=== PATIENT | male | born 1955 | race Caucasian/White ===

== ENCOUNTER 2019-01-07 10:10 | Inpatient (IN) | payer MEDICAID ==
[~2019-01-07] VITALS: Ht 157.5 cm; Wt 54.6 kg
[2019-01-07] VITALS (29 sets, daily range): BP systolic 101–127; BP diastolic 58–82; PULSE 89–126; RESP 11–18; Ht 157.5 cm; Wt 54.6 kg
[~2019-01-07 10:10] MED LIST: PROPOFOL 200 MG INJ ONE
[2019-01-07] MEDS ORDERED: FAMOTIDINE 20 MG INJ IV ONE (10:30)
--- NOTE | 2019-01-07 11:42 | ERD ---
ER Documentation Chief Complaint Chief Complaint BIB RA FOR EVAL OF HEMATEMESIS. ETOH HPI 63-year-old male brought to the emergency department by paramedics for evaluation of possible GI bleed. Patient is intoxicated providing very limited history. According to the paramedics, they were called to this patient on the street where he was noted to have coffee-ground emesis. He was noted to have significant diarrhea with no darren hematochezia. Patient expressed no abdominal pain. I have reviewed the kitchen hand pre-hospital care. Pre-hospital vital signs were reviewed. Pre-hospital diagnostic tests were reviewed. Upon arrival, patient is intoxicated and unable to provide any history. ROS All systems reviewed and are negative except as per history of present illness. Medications Home Meds No Active Prescriptions or Reported Meds Allergies Allergies: Coded Allergies: No Known Allergy (Unverified , 09/29/12) PMhx/Soc Medical and Surgical Hx: pt denies Medical Hx, pt denies Surgical Hx History of Surgery: No Anesthesia Reaction: No Hx Neurological Disorder: No Hx Respiratory Disorders: No Hx Cardiac Disorders: Yes (HTN) Hx Psychiatric Problems: No Hx Miscellaneous Medical Probl: Yes (ETOH) Hx Alcohol Use: Yes (last 09/13/2014) Hx Substance Use: No Hx Tobacco Use: No Smoking Status: Never smoker FmHx Unknown at this time Physical Exam Vitals Vital Signs Date Temp Pulse Resp B/P (MAP) Pulse Ox O2 O2 Flow FiO2 Time Delivery Rate 01/07/19 97 12 110/73 100 Room Air 10:50 (85) 01/07/19 95.3 114 19 116/74 97 10:28 (88) Physical Exam GENERAL: Intoxicated male. Disheveled. Unkept. HEENT: Pupils equal, round, and reactive to light. EOMI. There is no scleral icterus. NECK: C-spine is soft and supple, there is no meningismus. There is no cervical lymphadenopathy. LUNGS: Clear to auscultation bilaterally. There are no rales, wheezes or rhonchi. HEART: Regular rate and rhythm, no murmurs, clicks, rubs or gallops. ABDOMEN: Soft, non-tender, non-distended. There are bowel sounds in all four quadrants. No rebound or guarding. EXTREMITIES: There is no peripheral cyanosis or edema. No focal swelling or erythema. NEURO: The patient moves all four extremities with 5/5 strength. Cranial nerves II - XII are intact. Slurred speech. Appears intoxicated. SKIN: There is no apparent rash or petechiae. HEME/LYMPHATIC: There is no evidence of excessive bruising or lymphedema. PSYCHIATRIC: The patient does not appear anxious or depressed. Result Diagram: 01/07/19 1043 01/07/19 1044 Results 24 hrs Laboratory Tests Test 01/07/19 10:43 01/07/19 10:44 01/07/19 11:14 White Blood Count 7.5 10^3/ul Red Blood Count 3.16 10^6/ul Hemoglobin 9.9 g/dl Hematocrit 29.1 % Mean Corpuscular Volume 92.1 fl Mean Corpuscular Hemoglobin 31.3 pg Mean Corpuscular 34.0 g/dl Hemoglobin Concent Red Cell Distribution Width 17.5 % Platelet Count 213 10^3/UL Mean Platelet Volume 9.5 fl Immature Granulocytes % 0.400 % Neutrophils % 83.6 % Lymphocytes % 6.8 % Monocytes % 8.8 % Eosinophils % 0.1 % Basophils % 0.3 % Nucleated Red Blood Cells % 0.0 /100WBC Immature Granulocytes # 0.030 10^3/ul Neutrophils # 6.3 10^3/ul Lymphocytes # 0.5 10^3/ul Monocytes # 0.7 10^3/ul Eosinophils # 0.0 10^3/ul Basophils # 0.0 10^3/ul Nucleated Red Blood Cells # 0.0 10^3/ul Prothrombin Time 15.9 Sec Prothrombin Time Ratio 1.2 INR International 1.26 Normalized Ratio Activated Partial Thromboplast 33.6 Sec Time Sodium Level 135 mmol/L Potassium Level 3.7 mmol/L Chloride Level 89 mmol/L Carbon Dioxide Level 22 mmol/L Anion Gap 24 Blood Urea Nitrogen 20 mg/dl Creatinine 0.67 mg/dl Est Glomerular Filtrat > 60 mL/min Rate mL/min Glucose Level 110 mg/dl Calcium Level 8.8 mg/dl Total Bilirubin 0.3 mg/dl Direct Bilirubin 0.00 mg/dl Indirect Bilirubin 0.3 mg/dl Aspartate Amino 106 IU/L Transf (AST/SGOT) Alanine 48 IU/L Aminotransferase (ALT/SGPT) Alkaline Phosphatase 85 IU/L Total Protein 8.1 g/dl Albumin 4.5 g/dl Globulin 3.60 g/dl Albumin/Globulin Ratio 1.25 Lipase 228 U/L Ethyl Alcohol Level 252.0 mg/dl Urine Color YELLOW Urine Clarity CLEAR Urine pH 6.0 Urine Specific [place] 1.021 Urine Ketones 2+ mg/dL Urine Nitrite NEGATIVE mg/dL Urine Bilirubin NEGATIVE mg/dL Urine Urobilinogen 1+ mg/dL Urine Leukocyte Esterase NEGATIVE Pete/ul Urine Microscopic RBC 4 /HPF Urine Microscopic WBC 1 /HPF Urine Bacteria FEW /HPF Urine Hemoglobin 2+ mg/dL Urine Glucose NEGATIVE mg/dL Urine Total Protein 2+ mg/dl Current Medications Medications Dose Sig/Marina Start Time Status Last (Trade) Ordered Route PRN Stop Time Admin Dose Reason Admin Famotidine 40 mg ONCE ONCE 01/07/19 DC 01/07/19 (Pepcid Iv) IV 10:30 01/07/19 10:47 10:31 Sodium 500 ml @ Q1H ONCE 01/07/19 Chloride 500 mls/hr IV 12:00 01/07/19 12:59 Procedures/MDM Patient was taken to a room, seen and evaluated. Comfort measures were initiated. Diagnostic tests were ordered and reviewed. 3 LEAD RHYTHM STRIP: Normal sinus rhythm without ectopy RADIOLOGY: Reviewed with the radiologist CONSULTATION: Hospitalist was notified for admission REEVALUATION: 1140: Diagnostic tests were appreciated. Patient remained he dynamically stable. No active GI bleeding in the emergency department was noted. MEDICAL DECISION MAKIN-year-old male presents to the emergency department intoxicated with concerns for GI bleed. Given his significant alcohol use he is obviously at high risk of this being a significant EtOH gastritis. His hemoglobin is low, but not requiring of emergent transfusion. 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 Departure Diagnosis: Primary Impression: Alcoholic intoxication Additional Impression: GI bleed Condition: Annemarie SHEPHERDSAMMI Jan 07, 2019 11:42
[2019-01-07] MEDS ORDERED: SOD CHLORIDE 0.9% 500 ML IV ONE (12:00)
--- NOTE | 2019-01-07 12:00 | NUR ---
ER Admission: Patient admitted from ER, brought to unit by miranda, arrived @ 1200. Patient's vital signs stable, no signs of acute distress, no c/o pain. Patient admitted for GI bleed, consult with Dr. Bee pending. Report of homeless patient picked up for coffee ground emesis. Patient skin check completed with second RN. Patient's belongings at bedside. Will carry out orders. Patient instructed to call for assistance, will round on hourly, will continue to monitor patient status.
--- NOTE | 2019-01-07 12:07 | HP ---
Date/Time of Note Date/Time of Note DATE: 01/07/19 TIME: 12:07 Assessment/Plan VTE Prophylaxis SCD applied (from Ns): Yes Pharmacological prophylaxis: NA/contraindicated Pharm contraindication: bleeding Assessment/Plan Hospital Course SUBJECTIVE: Lying in bed comfortably. No acute discomfort. OBJECTIVE: Vital signs-see below PHYSICAL EXAM: Constitutional: Disheveled male, lying in bed comfortably. Psych: nl mood/affect, no complaints Head: atraumatic, normocephalic Eyes: nl conjunctiva, nl sclera ENMT: mucosa pink and moist, nl external ears & nose Neck: non-tender, supple Respiratory: clear to auscultation, normal air movement Cardiovascular: nl pulses, regular rate and rhythm Gastrointestinal: non-tender, soft, bowel sounds active in all 4 quadrants. Musculoskeletal/extremities: nl extremities to inspection, motor strength equal bilaterally, no focal deficit. Normal pulses,no cyanosis, no edema. Neurological: Altered/drowsy. nl strength Skin: nl turgor ASSESSMENT/PLAN: 63-year-old homeless male who is also a poor historian with alcoholism, brought in by paramedics after found on the street intoxicated, fernando ng coffee-ground emesis. 1. Coffee-ground emesis/UGIB. Rule out variceal bleeding -GI consult for EGD -N.p.o. -Start Protonix drip -Monitor H&H closely-Q 8. Currently stable, no indication for transfusion. -CT abdomen and pelvis 2. EtOH abuse/intoxication -Banana bag, IV fluids -Ativan for withdrawal as patient unable to tolerate any p.o. Librium secondary to his mental status -Cessation advised. 3. Encephalopathy, likely toxic metabolic. -CT brain to rule out stroke -Supportive care 4. 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 Approximately 60 m spent on this history and physical. Patient was seen in collaboration with . Result Diagram: 01/07/19 1043 01/07/19 1044 Results 24hrs Laboratory Tests Test 01/07/19 10:43 01/07/19 10:44 01/07/19 11:14 White Blood Count 7.5 # Red Blood Count 3.16 L Hemoglobin 9.9 L Hematocrit 29.1 L Mean Corpuscular Volume 92.1 Mean Corpuscular Hemoglobin 31.3 Mean Corpuscular Hemoglobin Concent 34.0 Red Cell Distribution Width 17.5 H Platelet Count 213 Mean Platelet Volume 9.5 # Immature Granulocytes % 0.400 Neutrophils % 83.6 H Lymphocytes % 6.8 L Monocytes % 8.8 Eosinophils % 0.1 Basophils % 0.3 Nucleated Red Blood Cells % 0.0 Immature Granulocytes # 0.030 Neutrophils # 6.3 Lymphocytes # 0.5 L Monocytes # 0.7 Eosinophils # 0.0 Basophils # 0.0 Nucleated Red Blood Cells # 0.0 Prothrombin Time 15.9 H Prothrombin Time Ratio 1.2 INR International Normalized Ratio 1.26 Activated Partial Thromboplast Time 33.6 Sodium Level 135 Potassium Level 3.7 Chloride Level 89 L Carbon Dioxide Level 22 Anion Gap 24 H Blood Urea Nitrogen 20 Creatinine 0.67 Est Glomerular Filtrat Rate mL/min > 60 Glucose Level 110 Calcium Level 8.8 Total Bilirubin 0.3 Direct Bilirubin 0.00 Indirect Bilirubin 0.3 Aspartate Amino Transf (AST/SGOT) 106 H Alanine Aminotransferase (ALT/SGPT) 48 Alkaline Phosphatase 85 Total Protein 8.1 Albumin 4.5 Globulin 3.60 H Albumin/Globulin Ratio 1.25 Lipase 228 Ethyl Alcohol Level 252.0 H Urine Color YELLOW Urine Clarity CLEAR Urine pH 6.0 Urine Specific [place] 1.021 Urine Ketones 2+ H Urine Nitrite NEGATIVE Urine Bilirubin NEGATIVE Urine Urobilinogen 1+ H Urine Leukocyte Esterase NEGATIVE Urine Microscopic RBC 4 Urine Microscopic WBC 1 Urine Bacteria FEW A Urine Hemoglobin 2+ H Urine Glucose NEGATIVE Urine Total Protein 2+ H HPI/ROS Admit Date/Time Admit Date/Time Hx of Present Illness 63-year-old disheveled, homeless male with alcohol abuse, brought in by paramedics after found on street intoxicated, altered, having coffee-ground emesis. Apparently, patient is a very poor historian, unable to provide me any information, as such history is very limited. Patient denies to any acute discomfort like chest pain, palpitation, shortness of breath, abdominal pain, trauma, dizziness, or other acute constitutional symptoms. In the emergency room, initial labs showed hemoglobin 9.9, hematocrit 29.1, AST 106. Atrial alcohol detected 252 and blood. Coag studies unremarkable. Urine analysis negative for any UTI. Chest x-ray with subsegmental atelectasis, no evidence of pneumonia or other acute cardiopulmonary disease. There were old rib fractures visible in the x-ray. In the emergency room, patient was given normal saline 500 mL and Pepcid 40 mg and was admitted for GI bleed workup. ROS A 12 point review of system was assessed and is negative other than what is mentioned in HPI. PMH/Family/Social Past Medical History See HPI Medications Current Medications Sodium Chloride 500 ml @ 500 mls/hr Q1H ONCE IV Last administered on 01/07/19at 11:53; Admin Dose 500 MLS/HR; Start 01/07/19 at 12:00; Stop 01/07/19 at 12:59 Coded Allergies: No Known Allergy (Unverified , 09/29/12) Past Surgical History Noncontributory Social History Alcohol abuse. Smoking Status: Never smoker Exam/Review of Systems Vital Signs Vitals Vital Signs Date Temp Pulse Resp B/P (MAP) Pulse Ox O2 O2 Flow FiO2 Time Delivery Rate 01/07/19 98.3 111 12 110/65 100 Room Air 11:56 (80) CHINO AGUILAR NP Jan 07, 2019 12:07
[2019-01-07] MEDS ORDERED: ACETAMINOPHEN 650 MG SUPP PR PRN (12:30)
[2019-01-07] MEDS ORDERED: ONDANSETRON 4 MG INJ IV PRN (12:30)
[2019-01-07] MEDS ORDERED: PANTOPRAZOLE IV 80 MG in SOD CHLORIDE 0.9% 100 ML IVPB ONE (12:30)
[2019-01-07] MEDS ORDERED: NACL 0.9% 3 ML SYG IV SCH (12:30)
[2019-01-07] MEDS ORDERED: LORAZEPAM 2 MG INJ IV PRN (12:30)
--- NOTE | 2019-01-07 13:30 | NUR ---
Skin Assessment: Skin assessment completed. Patient noted to have multiple abrasions throughout body surface. Patient reports the abrasion occurred from falls; patient in homeless & lives on the streets. Pictures taken & placed in chart. Addendum: 01/07/19 at 1717 by MANSOOR CURRIE RN Endorsed to receiving Kat. SKYLER
[2019-01-07] MEDS: SOD CHLORIDE 0.9% 1,000 ML IV SCH ×2 (13:35→20:01)
--- NOTE | 2019-01-07 13:36 | QN ---
Documentation Comment RN called reported bouts of bloody vomiting. Recommended transferring patient to telemetry. Obtain stat H&H and will give standing transfusion orders. Continue Protonix drip. Add octreotide. Patient needs emergent EGD evaluation and I contacted inspector publications to arrange EGD as soon as possible. GI to follow. Case discussed with CHINO Bobo NP Jan 07, 2019 13:35
--- NOTE | 2019-01-07 14:21 | NUR ---
NURSES NOTES: PT TO BE TRANSFERRED FROM 2NE ROOM 2283 TO 6W ROOM 621. ENDORSED BY SKYLER MAX. KULDEEP, CHARGE NURSE FROM TELEMETRY TO HOSPICE OFFICE COORDINATOR PATIENT. AWAITING FOR PATIENT AT THIS TIME
--- NOTE | 2019-01-07 14:30 | NUR ---
Transfer: Patient transferred to telemetry 6W room 621, report given to SKYLER Acevedo. Patient vomiting bright red emesis x2, once was on bed, second time in emesis bag 200ml. Patient heart rate elevated 125bpm. Patient to be started on med given on tele unit. TRAVIS Lopez made aware of patient status. Orders to transfer to telemetry received and carried out. Patient transported by bed with SKYLER LIGHT & transporter.
--- NOTE | 2019-01-07 14:38 | CONS ---
Assessment/Plan Assessment/Plan Assessment/Plan (Daily) Consultation Date/Type/Reason Admit Date/Time Date of Consultation: Jan 07, 2019 Date/Time of Note DATE: 01/07/19 TIME: 14:35 Past Medical History Home Meds No Active Prescriptions or Reported Meds Medications Current Medications Sodium Chloride 1,000 ml @ 125 mls/hr Q8H IV Last administered on 01/07/19at 13:35; Admin Dose 125 MLS/HR; Start 01/07/19 at 12:01 IV Flush (NS 3 ml) 3 ml PER PROTOCOL IV ; Start 01/07/19 at 12:30 Ondansetron HCl (Zofran Inj) 4 mg Q6H PRN IV NAUSEA/VOMITING; Start 01/07/19 at 12:30 Acetaminophen (Tylenol Supp) 650 mg Q6H PRN MD .PAIN 1-3 OR TEMP; Start 01/07/19 at 12:30 Pantoprazole 80 mg/Sodium Chloride 100 ml @ 10 mls/hr Q10H IV ; Start 01/07/19 at 13:00 Multivitamins 10 ml/Thiamine HCl 100 mg/Folic Acid 1 mg/Sodium Chloride 1,011.2 ml @ 125 mls/ hr DAILY@09 IVPB ; Start 01/07/19 at 14:00 Lorazepam (Ativan) 1 mg Q2H PRN IV SEIZURES/AGITATION; Start 01/07/19 at 12:30 Octreotide Acetate 50 mcg/ Sodium Chloride 51 ml @ 204 mls/hr ONCE ONCE IVPB ; Start 01/07/19 at 14:00; Stop 01/07/19 at 14:14; Status UNV Allergies: Coded Allergies: No Known Allergy (Unverified , 01/07/19) Social History Smoking Status: Current some day smoker Exam/Review of Systems Exam Vitals . Vital Signs Date Temp Pulse Resp B/P (MAP) Pulse Ox O2 O2 Flow FiO2 Time Delivery Rate 01/07/19 121 107/61 95 14:01 (76) 01/07/19 98.4 18 12:30 01/07/19 Room Air 11:56 Results Result Diagram: 01/07/19 1043 01/07/19 1044 Results 24hrs Laboratory Tests Test 01/07/19 10:43 01/07/19 10:44 01/07/19 11:14 White Blood Count 7.5 # Red Blood Count 3.16 L Hemoglobin 9.9 L Hematocrit 29.1 L Mean Corpuscular Volume 92.1 Mean Corpuscular Hemoglobin 31.3 Mean Corpuscular Hemoglobin Concent 34.0 Red Cell Distribution Width 17.5 H Platelet Count 213 Mean Platelet Volume 9.5 # Immature Granulocytes % 0.400 Neutrophils % 83.6 H Lymphocytes % 6.8 L Monocytes % 8.8 Eosinophils % 0.1 Basophils % 0.3 Nucleated Red Blood Cells % 0.0 Immature Granulocytes # 0.030 Neutrophils # 6.3 Lymphocytes # 0.5 L Monocytes # 0.7 Eosinophils # 0.0 Basophils # 0.0 Nucleated Red Blood Cells # 0.0 Prothrombin Time 15.9 H Prothrombin Time Ratio 1.2 INR International Normalized Ratio 1.26 Activated Partial Thromboplast Time 33.6 Sodium Level 135 Potassium Level 3.7 Chloride Level 89 L Carbon Dioxide Level 22 Anion Gap 24 H Blood Urea Nitrogen 20 Creatinine 0.67 Est Glomerular Filtrat Rate mL/min > 60 Glucose Level 110 Calcium Level 8.8 Total Bilirubin 0.3 Direct Bilirubin 0.00 Indirect Bilirubin 0.3 Aspartate Amino Transf (AST/SGOT) 106 H Alanine Aminotransferase (ALT/SGPT) 48 Alkaline Phosphatase 85 Total Protein 8.1 Albumin 4.5 Globulin 3.60 H Albumin/Globulin Ratio 1.25 Lipase 228 Ethyl Alcohol Level 252.0 H Urine Color YELLOW Urine Clarity CLEAR Urine pH 6.0 Urine Specific [place] 1.021 Urine Ketones 2+ H Urine Nitrite NEGATIVE Urine Bilirubin NEGATIVE Urine Urobilinogen 1+ H Urine Leukocyte Esterase NEGATIVE Urine Microscopic RBC 4 Urine Microscopic WBC 1 Urine Bacteria FEW A Urine Hemoglobin 2+ H Urine Glucose NEGATIVE Urine Total Protein 2+ H Medications Medication Current Medications Sodium Chloride 1,000 ml @ 125 mls/hr Q8H IV Last administered on 01/07/19at 13:35; Admin Dose 125 MLS/HR; Start 01/07/19 at 12:01 IV Flush (NS 3 ml) 3 ml PER PROTOCOL IV ; Start 01/07/19 at 12:30 Ondansetron HCl (Zofran Inj) 4 mg Q6H PRN IV NAUSEA/VOMITING; Start 01/07/19 at 12:30 Acetaminophen (Tylenol Supp) 650 mg Q6H PRN MD .PAIN 1-3 OR TEMP; Start 01/07/19 at 12:30 Pantoprazole 80 mg/Sodium Chloride 100 ml @ 10 mls/hr Q10H IV ; Start 01/07/19 at 13:00 Multivitamins 10 ml/Thiamine HCl 100 mg/Folic Acid 1 mg/Sodium Chloride 1,011.2 ml @ 125 mls/ hr DAILY@09 IVPB ; Start 01/07/19 at 14:00 Lorazepam (Ativan) 1 mg Q2H PRN IV SEIZURES/AGITATION; Start 01/07/19 at 12:30 Octreotide Acetate 50 mcg/ Sodium Chloride 51 ml @ 204 mls/hr ONCE ONCE IVPB ; Start 01/07/19 at 14:00; Stop 01/07/19 at 14:14; Status RENETTA VELASQUEZ Jan 07, 2019 14:38
[2019-01-07] MEDS: PANTOPRAZOLE IV 80 MG in SOD CHLORIDE 0.9% 100 ML IV SCH ×2 (14:39→23:00)
[2019-01-07] MEDS: MULTIVITAMINS 10 ML, THIAMINE 100 MG, FOLIC ACID 1 MG in SOD CHLORIDE 0.9% 1,000 ML IVPB SCH (14:39)
--- NOTE | 2019-01-07 15:21 | NUR ---
NURSES NOTES: PT WITH ORDERS FOR EGD. CONSENT OBTAINED BY PT AND PLACED IN CHART. CALLED GI LAB AND ENDORSED PT TO VREO PUNCH CARD OPERATOR NURSE AT THIS TIME. PT CLEAN AND DRY. AWAITING FOR TRANSPORTER. WILL CONTINUE TO MONITOR AND ASSESS PT THROUGHOUT THE SHIFT
--- NOTE | 2019-01-07 15:36 | NUR ---
NURSES NOTES: PT PICKED UP BY DYLON AND ACCOMPANIED BY LANCE MANCILLA FOR SCHEDULED EGD BY AWAITING FOR PT TO ARRIVE BACK TO UNIT
--- NOTE | 2019-01-07 15:41 | PREAC ---
Date/Time of Note Date/Time of Note DATE: 01/07/19 TIME: 15:40 Anesthesia Eval and Record Evaluation Time Pre-Procedure Interview DATE: 01/07/19 TIME: 15:40 Age 63 Sex male NPO: 8 hrs Preoperative diagnosis gi bleeding Planned procedure EGD Past Medical History Past Medical History: Includes Neuro: Other (encephalopathy) Hepatic: Alcohol abuse Surgery & Anesthesia Issues No known issue Meds Anticoagulation: No Beta Ty within 24 hr: No Reason Beta Ty not given: Pt. not on B-Ty No Active Prescriptions or Reported Meds Current Medications Sodium Chloride 1,000 ml @ 125 mls/hr Q8H IV Last administered on 01/07/19at 13:35; Admin Dose 125 MLS/HR; Start 01/07/19 at 12:01 IV Flush (NS 3 ml) 3 ml PER PROTOCOL IV ; Start 01/07/19 at 12:30 Ondansetron HCl (Zofran Inj) 4 mg Q6H PRN IV NAUSEA/VOMITING; Start 01/07/19 at 12:30 Acetaminophen (Tylenol Supp) 650 mg Q6H PRN ME .PAIN 1-3 OR TEMP; Start 01/07/19 at 12:30 Pantoprazole 80 mg/Sodium Chloride 100 ml @ 10 mls/hr Q10H IV Last administered on 01/07/19at 14:39; Admin Dose 10 MLS/HR; Start 01/07/19 at 13:00 Multivitamins 10 ml/Thiamine HCl 100 mg/Folic Acid 1 mg/Sodium Chloride 1,011.2 ml @ 125 mls/ hr DAILY@09 IVPB Last administered on 01/07/19at 14:39; Admin Dose 125 MLS/HR; Start 01/07/19 at 14:00 Lorazepam (Ativan) 1 mg Q2H PRN IV SEIZURES/AGITATION; Start 01/07/19 at 12:30 Octreotide Acetate 50 mcg/ Sodium Chloride 51 ml @ 204 mls/hr ONCE ONCE IVPB ; Start 01/07/19 at 16:00; Stop 01/07/19 at 16:14 Influenza Virus Vaccine Quadrival (Fluzone) 0.5 ml ONCE ONCE IM* ; Start 01/08/19 at 10:00; Stop 01/08/19 at 10:01 Meds reviewed: Yes Allergies Coded Allergies: No Known Allergy (Unverified , 01/07/19) Allergies Reviewed: Yes Labs/Studies Labs Reviewed: Reviewed by anesthesiologist Result Diagram: 01/07/19 1503 01/07/19 1044 Laboratory Tests 01/07/19 10:43 01/07/19 10:44 01/07/19 15:03 Blood Bank Test 01/07/19 10:43 Antibody Screen NEGATIVE Blood Product Summary Counts Blood Type O POSITIVE Crossmatch Red Blood Cells test: N/A Pre-procedure Exam Last vitals Vital Signs Date Temp Pulse Resp B/P (MAP) Pulse Ox O2 O2 Flow FiO2 Time Delivery Rate 01/07/19 99.0 112 16 123/65 97 15:07 (84) 01/07/19 Room Air 11:56 Airway: Adequate mouth opening Mallampati: Mallampati I Teeth: Normal Lung: Normal Heart: Normal ASA Physical Status ASA physical status: 2 Emergency: None Planned Anesthetic General/MAC: MAC Pre-operative Attestations Prior to commencing anesthesia and surgery, the patient was re-evaluated, there was verification of: *The patient's identity *The results of appropriate recent lab work and preoperative vital signs *The above evaluation not changing prior to induction *Anesthetic plan, risk benefits, alternative and complications discussed with patient/family; questions answered; patient/family understands, accepts and wishes to proceed. LUCINDA CROWE MD Jan 07, 2019 15:41
--- NOTE | 2019-01-07 15:58 | NUR ---
RECEIVED FROM GI LAB S/P EGD WITH BX. IV INFUSING IN RT. AC #20 ANGIOCATH
[2019-01-07] MEDS ORDERED: OCTREOTIDE 50 MCG in SOD CHLORIDE 0.9% 50 ML IVPB ONE (16:00)
[2019-01-07] MEDS ORDERED: SOD CHLORIDE 0.9% 100 ML ONE (16:20)
[2019-01-07] MEDS ORDERED: IOHEXOL 300MG/ML 150 ML BTL ONE (16:20)
--- NOTE | 2019-01-07 16:24 | CONS ---
Assessment/Plan Assessment/Plan Assessment/Plan (Daily) Assessment: GI bleeding/hematemesis/coffee-ground emesis. History of alcohol abuse. Probable alcoholic liver disease. Confusional state/encephalopathy Homelessness Plan: Urgent EGD. Further recommendation will depend on findings. Monitor H&H and transfuse as necessary. Consultation Date/Type/Reason Admit Date/Time Date of Consultation: Jan 07, 2019 Type of Consult Gastroenterology Reason for Consultation GI bleeding Date/Time of Note DATE: 01/07/19 TIME: 16:17 Hx of Present Illness 63-year-old male, homeless, EtOH abuser, presented to the emergency room with evidence of coffee-ground emesis which recurred while in hospital, he has been transferred to telemetry for further management. The patient provides no additional information of significant value. He does admit significant ethanol abuse. No previous history of gastrointestinal bleeding or knowledge of cirrhosis. The patient will be evaluated with urgent EGD given the persistence of coffee-ground emesis. Review of Systems: [A 12 system, review was conducted and is negative except as noted in the HPI or here.] Gastrointestinal and liver: [As noted in HPI] Past Medical History Alcohol abuse Home Meds No Active Prescriptions or Reported Meds Medications Current Medications Sodium Chloride 1,000 ml @ 125 mls/hr Q8H IV Last administered on 01/07/19at 13:35; Admin Dose 125 MLS/HR; Start 01/07/19 at 12:01 IV Flush (NS 3 ml) 3 ml PER PROTOCOL IV ; Start 01/07/19 at 12:30 Ondansetron HCl (Zofran Inj) 4 mg Q6H PRN IV NAUSEA/VOMITING; Start 01/07/19 at 12:30 Acetaminophen (Tylenol Supp) 650 mg Q6H PRN CO .PAIN 1-3 OR TEMP; Start 01/07/19 at 12:30 Pantoprazole 80 mg/Sodium Chloride 100 ml @ 10 mls/hr Q10H IV Last administered on 01/07/19at 14:39; Admin Dose 10 MLS/HR; Start 01/07/19 at 13:00 Multivitamins 10 ml/Thiamine HCl 100 mg/Folic Acid 1 mg/Sodium Chloride 1,011.2 ml @ 125 mls/ hr DAILY@09 IVPB Last administered on 01/07/19at 14:39; Admin Dose 125 MLS/HR; Start 01/07/19 at 14:00 Lorazepam (Ativan) 1 mg Q2H PRN IV SEIZURES/AGITATION; Start 01/07/19 at 12:30 Influenza Virus Vaccine Quadrival (Fluzone) 0.5 ml ONCE ONCE IM* ; Start 01/08/19 at 10:00; Stop 01/08/19 at 10:01 Allergies: Coded Allergies: No Known Allergy (Unverified , 01/07/19) Past Surgical History Past Surgical Hx: no surgical history Family History Significant Family History: no pertinent family hx Social History Alcohol Use: heavy Smoking Status: Current some day smoker Exam/Review of Systems Exam Vitals Vital Signs Date Temp Pulse Resp B/P (MAP) Pulse Ox O2 O2 Flow FiO2 Time Delivery Rate 01/07/19 98.6 112 12 116/61 97 Nasal 3.0 15:46 (79) Cannula Exam PHYSICAL EXAMINATION: GENERAL: Well developed, well nourished, somewhat confused in no acute distress SKIN: No lesions, no stigmata chronic liver disease, no evidence of bleeding diathesis LYMPHATIC: No palpable lymphadenopathy. HEAD: Normocephalic, atraumatic, no tenderness. EYES: Pupils equal reactive to light and accommodation, full extraocular movements, sclera clear, non-icteric, no discharge. EARS/NOSE AND THROAT: Ears normal, nose normal, oropharynx normal, oral membranes well hydrated without lesions. NECK: Supple, no masses, thyroid normal, JVP within normal limits, carotids normal without bruits. CHEST: Inspection within normal limits. CARDIOVASCULAR: Heart: Regular rate and rhythm, no murmurs, gallops or rubs. Peripheral pulses present within normal limits, no cyanosis, clubbing or edemas. No pulsatile abdominal mass RESPIRATORY: Lungs clear to auscultation and percussion, no wheezing, no rubs GASTROINTESTINAL AND LIVER: Abdomen: Soft, moderate epigastric tenderness, non- distended, no hernias, no masses, no organomegaly, no ascites, no guarding, no rebound tenderness, normoactive bowel sounds. Rectal: Deferred. GENITOURINARY: [Male genitalia within normal limits.] EXTREMITIES: No cyanosis, clubbing or edema. Results Result Diagram: 01/07/19 1503 01/07/19 1044 Results 24hrs Laboratory Tests Test 01/07/19 10:43 01/07/19 10:44 01/07/19 11:14 01/07/19 15:03 White Blood Count 7.5 # Red Blood Count 3.16 L Hemoglobin 9.9 L 8.2 L Hematocrit 29.1 L 24.0 L Mean Corpuscular Volume 92.1 Mean Corpuscular 31.3 Hemoglobin Mean Corpuscular 34.0 Hemoglobin Concent Red Cell Distribution 17.5 H Width Platelet Count 213 Mean Platelet Volume 9.5 # Immature Granulocytes % 0.400 Neutrophils % 83.6 H Lymphocytes % 6.8 L Monocytes % 8.8 Eosinophils % 0.1 Basophils % 0.3 Nucleated Red Blood 0.0 Cells % Immature Granulocytes # 0.030 Neutrophils # 6.3 Lymphocytes # 0.5 L Monocytes # 0.7 Eosinophils # 0.0 Basophils # 0.0 Nucleated Red Blood 0.0 Cells # Prothrombin Time 15.9 H Prothrombin Time Ratio 1.2 INR International 1.26 Normalized Ratio Activated 33.6 Partial Thromboplast Time Sodium Level 135 Potassium Level 3.7 Chloride Level 89 L Carbon Dioxide Level 22 Anion Gap 24 H Blood Urea Nitrogen 20 Creatinine 0.67 Est Glomerular Filtrat > 60 Rate mL/min Glucose Level 110 Calcium Level 8.8 Total Bilirubin 0.3 Direct Bilirubin 0.00 Indirect Bilirubin 0.3 Aspartate Amino 106 H Transf (AST/SGOT) Alanine 48 Aminotransferase (ALT/SG PT) Alkaline Phosphatase 85 Total Protein 8.1 Albumin 4.5 Globulin 3.60 H Albumin/Globulin Ratio 1.25 Lipase 228 Ethyl Alcohol Level 252.0 H Urine Color YELLOW Urine Clarity CLEAR Urine pH 6.0 Urine Specific [place] 1.021 Urine Ketones 2+ H Urine Nitrite NEGATIVE Urine Bilirubin NEGATIVE Urine Urobilinogen 1+ H Urine Leukocyte Esterase NEGATIVE Urine Microscopic RBC 4 Urine Microscopic WBC 1 Urine Bacteria FEW A Urine Hemoglobin 2+ H Urine Glucose NEGATIVE Urine Total Protein 2+ H Medications Medication Current Medications Sodium Chloride 1,000 ml @ 125 mls/hr Q8H IV Last administered on 01/07/19at 13:35; Admin Dose 125 MLS/HR; Start 01/07/19 at 12:01 IV Flush (NS 3 ml) 3 ml PER PROTOCOL IV ; Start 01/07/19 at 12:30 Ondansetron HCl (Zofran Inj) 4 mg Q6H PRN IV NAUSEA/VOMITING; Start 01/07/19 at 12:30 Acetaminophen (Tylenol Supp) 650 mg Q6H PRN CO .PAIN 1-3 OR TEMP; Start 01/07/19 at 12:30 Pantoprazole 80 mg/Sodium Chloride 100 ml @ 10 mls/hr Q10H IV Last administered on 01/07/19at 14:39; Admin Dose 10 MLS/HR; Start 01/07/19 at 13:00 Multivitamins 10 ml/Thiamine HCl 100 mg/Folic Acid 1 mg/Sodium Chloride 1,011.2 ml @ 125 mls/ hr DAILY@09 IVPB Last administered on 01/07/19at 14:39; Admin Dose 125 MLS/HR; Start 01/07/19 at 14:00 Lorazepam (Ativan) 1 mg Q2H PRN IV SEIZURES/AGITATION; Start 01/07/19 at 12:30 Influenza Virus Vaccine Quadrival (Fluzone) 0.5 ml ONCE ONCE IM* ; Start 01/08/19 at 10:00; Stop 01/08/19 at 10:01 CLARIBEL BOJORQUEZ MD Jan 07, 2019 16:24
--- NOTE | 2019-01-07 17:26 | NUR ---
NURSES NOTES: RECEIVED CALL FROM MANUEL FROM [facility] S/P EGD BY DR.SUCHOV Mckeon BIOPSY- DX: GASTRITIS. AWAITING FOR PT TO ARRIVE BACK TO UNIT.
--- NOTE | 2019-01-07 17:27 | NUR ---
REPORT GIVEN TO SKYLER MO
--- NOTE | 2019-01-07 17:41 | NUR ---
NURSES NOTES: PT BACK ON UNIT TRANSPORTED BY NURA HOLLAND FROM [facility]. A/OX3. STARTED ON CLEAR LIQUID DIET. WILL CONTINUE TO MONITOR AND ASSESS PT THROUGHOUT THE SHIFT
--- NOTE | 2019-01-07 17:43 | NUR ---
TRANSPORTED TO . ACCOMPANIED BY RN IN STABLE CONDITION. IV REMAINS PATENT. DENIES PAIN AT PRESENT.
[2019-01-07] MEDS: SUCRALFATE (100 MG/ML) 10ML CUP PO SCH ×2 (17:48→20:54)
--- NOTE | 2019-01-07 18:20 | NUR ---
NURSES NOTES: PT OFF UNIT FOR SCHEDULED CT/ABD PELVIS. AWAITING FOR PATIENT TO ARRIVE BACK TO UNIT
--- NOTE | 2019-01-07 18:59 | NUR ---
EOSS: PT SITTING UP IN BED. DENIES CHEST PAIN OR DISCOMFORT AT THIS TIME. NO S/S OR RESPIRATORY DISTRESS PT ON ROOM AIR. PT CLEAN AND DRY. BED BATH GIVEN TO PATIENT. WOUND CARE COMPLETED. S/P EGD WITH BIOPSY BY DR. BOJORQUEZ DX: GASTRITIS. PENDING RESULTS FOR CT/ABD PELVIS. BANANA BAG INFUSING AT 125 ML/HR AND PROTONIX @ 10 ML/HR INFUSING. PENDING LABS: H&H Q8H - WITH STANDING ORDERS COMMUNICATION TO NURSE: TRANSFUSE IF HGB <8.0 2 UNITS PACKED CELLS. FALL AND SAFETY PRECAUTIONS IMPLEMENTED, CALL LIGHT WITHIN REACH ABLE TO MAKE NEEDS KNOWN. BED IN LOWEST POSITION BRAKES LOCKED ROOM FREE OF CLUTTER. PERSONAL BELONGINGS PLACED CLOSE TO PATIENT. WILL ENDORSE TO ORNAMENTAL PLASTER STICKER RN ACCORDINGLY
[2019-01-08] VITALS (11 sets, daily range): BP systolic 109–135; BP diastolic 63–71; PULSE 90–111; RESP 16–18
[2019-01-08] MEDS: PANTOPRAZOLE IV 80 MG in SOD CHLORIDE 0.9% 100 ML IV SCH ×2 (02:42→09:00)
[2019-01-08] MEDS: SOD CHLORIDE 0.9% 1,000 ML IV SCH ×2 (04:01→06:34)
--- NOTE | 2019-01-08 04:20 | NUR ---
END OF SHIFT REPORT VITALS STABLE. SINUS TACHY TO SINUS RHYTHM ON MONITOR. NO SIGNS OF DISTRESS; GOOD OXYGEN SATURATION. HAD ONE EPISODE OF VOMITING,COFFEE GROUND MATERIAL ABOUT 1/2 CUP. NO COMPLAINT OF PAIN RECEIVED 2 UNITS OF PACKED RBC TRANSFUSION. PREBT H/H = 7.7/22.2 Addendum: 01/08/19 at 0624 by SANDHYA CATALAN RN POST BT H/H 10.3/29.1 TOTAL COFFEE GROUND EMESIS FOR 12 HOURS ABOUT 400 ML
--- NOTE | 2019-01-08 08:10 | PAC ---
Date/Time of Note Date/Time of Note DATE: 01/08/19 TIME: 08:10 Post-Anesthesia Notes Post-Anesthesia Note Last documented vital signs Vital Signs Date Temp Pulse Resp B/P (MAP) Pulse Ox O2 O2 Flow FiO2 Time Delivery Rate 01/08/19 98.9 97 18 135/64 96 04:09 (87) 01/07/19 Room Air 17:27 01/07/19 10.0 15:54 Activity: WNL Respiratory function: WNL Cardiovascular function: WNL Mental status: Baseline Pain reasonably controlled: Yes Hydration appropriate: Yes Nausea/Vomiting absent: No LUCINDA CROWE MD Jan 08, 2019 08:10
[2019-01-08] MEDS: SUCRALFATE (100 MG/ML) 10ML CUP PO SCH ×4 (10:00→21:39)
[2019-01-08] MEDS: MULTIVITAMINS 10 ML, THIAMINE 100 MG, FOLIC ACID 1 MG in SOD CHLORIDE 0.9% 1,000 ML IVPB SCH (10:04)
[2019-01-08] MEDS ORDERED: MAGNESIUM SULFATE 4 GM/100 ML 100 ML IVPB ONE (10:30)
--- NOTE | 2019-01-08 11:00 | PN ---
Date/Time of Note Date/Time of Note DATE: 01/08/19 TIME: 10:56 Assessment/Plan VTE Prophylaxis Risk score (from Nsg)>0 risk: 3 SCD applied (from Ns): Yes Pharmacological prophylaxis: NA/contraindicated Pharm contraindication: low risk/ambulating, bleeding, anticoag not tolerated Lines/Catheters IV Catheter Type (from Nrs): Peripheral IV Urinary Cath still in place: No Assessment/Plan Hospital Course SUBJECTIVE: Status post EGD. No further hematemesis, nausea, vomiting or abdominal pain reported. OBJECTIVE: Vital signs-see below PHYSICAL EXAM: Constitutional: Disheveled male, lying in bed comfortably. Psych: nl mood/affect, no complaints Head: atraumatic, normocephalic Eyes: nl conjunctiva, nl sclera ENMT: mucosa pink and moist, nl external ears & nose Neck: non-tender, supple Respiratory: clear to auscultation, normal air movement Cardiovascular: nl pulses, regular rate and rhythm Gastrointestinal: non-tender, soft, bowel sounds active in all 4 quadrants. Musculoskeletal/extremities: nl extremities to inspection, motor strength equal bilaterally, no focal deficit. Normal pulses,no cyanosis, no edema. Neurological: Alert oriented x3. nl strength Skin: nl turgor ASSESSMENT/PLAN: 63-year-old homeless male who is also a poor historian with alcoholism, brought in by paramedics after found on the street intoxicated, having coffee-ground emesis. 1. Hematemesis/Upper GIB. Rule out variceal bleeding -Status post EGD, results pending. -Symptoms resolved. H&H stabilized=>Advance diet to full liquid. Change Protonix drip to 40 mg IV twice daily. 2. Acute blood loss anemia requiring multiple transfusion. -Now stable. -Monitor and will transfuse as needed. -We will also give iron supplementation. 3. EtOH abuse/intoxication -Continue banana bag. Will start Librium tapering dose. -Cessation advised. -group home worker to assist with rehabilitation program if patient is interested. 4. Encephalopathy, likely toxic metabolic 2/2 alcoholism -Resolved. -Supportive care 5. Homelessness -group home worker assistance. 6. Possible depressive disorders -group home worker recommended psych evaluation as such I have placed an order for inpatient psych eval. DVT prophylaxis: SCDs PUD prophylaxis: Protonix Disposition: Continue current management. Advance diet. If no further symptoms, stable heart rate, he can be downgraded to medical surgical floor. Patient was seen in collaboration with . Result Diagram: 01/08/19 1040 01/08/19 0532 Results 24hrs Laboratory Tests Test 01/07/19 11:14 01/07/19 15:03 01/07/19 20:27 01/08/19 05:32 Urine Color YELLOW Urine Clarity CLEAR Urine pH 6.0 Urine Specific 1.021 [place] Urine Ketones 2+ H Urine Nitrite NEGATIVE Urine Bilirubin NEGATIVE Urine Urobilinogen 1+ H Urine Leukocyte NEGATIVE Esterase Urine Microscopic 4 RBC Urine Microscopic 1 WBC Urine Bacteria FEW A Urine Hemoglobin 2+ H Urine Glucose NEGATIVE Urine Total Protein 2+ H Hemoglobin 8.2 L 7.7 L 10.3 #L Hematocrit 24.0 L 22.2 L 29.1 #L White Blood Count 7.3 Red Blood Count 3.31 L Mean Corpuscular 87.9 Volume Mean Corpuscular 31.1 Hemoglobin Mean Corpuscular 35.4 Hemoglobin Concent Red Cell 16.9 H Distribution Width Platelet Count 183 Mean Platelet 9.9 Volume Immature 0.500 H Granulocytes % Neutrophils % 61.1 Lymphocytes % 19.2 Monocytes % 18.7 H Eosinophils % 0.1 Basophils % 0.4 Nucleated Red Blood 0.4 H Cells % Immature 0.040 H Granulocytes # Neutrophils # 4.5 Lymphocytes # 1.4 Monocytes # 1.4 H Eosinophils # 0.0 Basophils # 0.0 Nucleated Red Blood 0.0 Cells # Sodium Level 134 L Potassium Level 3.3 L Chloride Level 93 L Carbon Dioxide 23 Level Anion Gap 18 H Blood Urea Nitrogen 8 # Creatinine 0.51 L Est Glomerular > 60 Filtrat Rate mL/min Glucose Level 83 Calcium Level 8.7 Phosphorus Level 2.1 L Magnesium Level 1.3 L Total Bilirubin 0.5 Direct Bilirubin 0.00 Indirect Bilirubin 0.5 Aspartate Amino 69 H Transf (AST/SGOT) Alanine 41 Aminotransferase (A LT/SGPT) Alkaline 62 Phosphatase Total Protein 6.5 # Albumin 3.6 Globulin 2.90 Albumin/Globulin 1.24 Ratio Test 01/08/19 07:48 01/08/19 10:40 Lab Scanned Report BLOOD TRANSFUSION Hemoglobin 10.2 L Hematocrit 29.1 L Exam/Review of Systems Exam Vitals Vital Signs Date Temp Pulse Resp B/P (MAP) Pulse Ox O2 O2 Flow FiO2 Time Delivery Rate 01/08/19 99.3 91 18 124/63 99 09:02 (83) 01/07/19 Room Air 17:27 01/07/19 10.0 15:54 Intake and Output 01/07/19 01/07/19 01/08/19 1515:00 23:00 07:00 IntakeIntake Total 975 ml 909 ml 1706 ml OutputOutput Total 200 ml 600 ml 950 ml BalanceBalance 775 ml 309 ml 756 ml Results Results 24hrs Laboratory Tests Test 01/07/19 11:14 01/07/19 15:03 01/07/19 20:27 01/08/19 05:32 Urine Color YELLOW Urine Clarity CLEAR Urine pH 6.0 Urine Specific 1.021 [place] Urine Ketones 2+ H Urine Nitrite NEGATIVE Urine Bilirubin NEGATIVE Urine Urobilinogen 1+ H Urine Leukocyte NEGATIVE Esterase Urine Microscopic 4 RBC Urine Microscopic 1 WBC Urine Bacteria FEW A Urine Hemoglobin 2+ H Urine Glucose NEGATIVE Urine Total Protein 2+ H Hemoglobin 8.2 L 7.7 L 10.3 #L Hematocrit 24.0 L 22.2 L 29.1 #L White Blood Count 7.3 Red Blood Count 3.31 L Mean Corpuscular 87.9 Volume Mean Corpuscular 31.1 Hemoglobin Mean Corpuscular 35.4 Hemoglobin Concent Red Cell 16.9 H Distribution Width Platelet Count 183 Mean Platelet 9.9 Volume Immature 0.500 H Granulocytes % Neutrophils % 61.1 Lymphocytes % 19.2 Monocytes % 18.7 H Eosinophils % 0.1 Basophils % 0.4 Nucleated Red Blood 0.4 H Cells % Immature 0.040 H Granulocytes # Neutrophils # 4.5 Lymphocytes # 1.4 Monocytes # 1.4 H Eosinophils # 0.0 Basophils # 0.0 Nucleated Red Blood 0.0 Cells # Sodium Level 134 L Potassium Level 3.3 L Chloride Level 93 L Carbon Dioxide 23 Level Anion Gap 18 H Blood Urea Nitrogen 8 # Creatinine 0.51 L Est Glomerular > 60 Filtrat Rate mL/min Glucose Level 83 Calcium Level 8.7 Phosphorus Level 2.1 L Magnesium Level 1.3 L Total Bilirubin 0.5 Direct Bilirubin 0.00 Indirect Bilirubin 0.5 Aspartate Amino 69 H Transf (AST/SGOT) Alanine 41 Aminotransferase (A LT/SGPT) Alkaline 62 Phosphatase Total Protein 6.5 # Albumin 3.6 Globulin 2.90 Albumin/Globulin 1.24 Ratio Test 01/08/19 07:48 01/08/19 10:40 Lab Scanned Report BLOOD TRANSFUSION Hemoglobin 10.2 L Hematocrit 29.1 L Medications Medication Current Medications IV Flush (NS 3 ml) 3 ml PER PROTOCOL IV ; Start 01/07/19 at 12:30 Ondansetron HCl (Zofran Inj) 4 mg Q6H PRN IV NAUSEA/VOMITING; Start 01/07/19 at 12:30 Acetaminophen (Tylenol Supp) 650 mg Q6H PRN [place] .PAIN 1-3 OR TEMP; Start 01/07/19 at 12:30 Pantoprazole 80 mg/Sodium Chloride 100 ml @ 10 mls/hr Q10H IV Last administered on 01/08/19at 02:42; Admin Dose 10 MLS/HR; Start 01/07/19 at 13:00 Multivitamins 10 ml/Thiamine HCl 100 mg/Folic Acid 1 mg/Sodium Chloride 1,011.2 ml @ 125 mls/ hr DAILY@09 IVPB Last administered on 01/08/19at 10:04; Admin Dose 125 MLS/HR; Start 01/07/19 at 14:00 Lorazepam (Ativan) 1 mg Q2H PRN IV SEIZURES/AGITATION; Start 01/07/19 at 12:30 Sucralfate (Carafate Susp) 1 gm QID PO Last administered on 01/08/19at 10:00; Admin Dose 1 GM; Start 01/07/19 at 17:00 Potassium Chloride 100 ml @ 50 mls/hr Q2H IVPB ; Start 01/08/19 at 10:30; Stop 01/08/19 at 14:29 Magnesium Sulfate 100 ml @ 25 mls/hr ONCE ONCE IVPB ; Start 01/08/19 at 10:30; Stop 01/08/19 at 14:29 CHINO AGUILAR NP Jan 08, 2019 11:00
[2019-01-08] MEDS: POTASSIUM CHLORIDE 100 ML IVPB SCH ×2 (11:21→13:17)
[2019-01-08] MEDS: CHLORDIAZEPOXIDE 25 MG CAP PO SCH ×2 (13:13→21:39)
--- NOTE | 2019-01-08 14:59 | NUR ---
SW: HOMELESS & ETOH SW met [facility] this 63-year-old Ch[place] speaking male at bedside with sign language interpreter at bedside. Patient states he is currently homeless and has been living on the streets and going to shelters for past 2 months. 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 Patient states he is single and has children, but states he does not know the whereabouts of his children. Patient denies having an AHCD, and he verbally designated his sister Mima Galaviz ([phone]) as his surrogate medical spokesperson. H e states that he only has 2 family members, a sister Mima Hart who lives in [facility] in a [facility], and a brother who lives in [place]. Patient states he is unemployed and has no source of income. SW provided patient with resources for GR and [employer]. Patient states that he eats whatever he can find. Patient states he was staying in a senior living in [place], the [facility]. Patient states he does not have a PMD. SW provided patient with resources for free and low cost medical clinics and discount prescription resources. In regards to d/c planning, SW called 211 and spoke with Britany, who states that the only available senior living at this time is the [facility]. SW provided patient with the resource for winter senior living and [facility], provided by [facility]. SW also provided patient with resources and psychoeducation for the following resources: [facility], [facility], [facility], senior living hotline phone number, section 8 housing, winter shelters, [facility], hot showers, hot meals, etc. Mental Health: Patient was tearful during this interview. Patient denies any history of anxiety, depression or mental illness, but did state that he had thoughts of suicide about 3 months ago, and wanted to "slit his throat," but denies any history of attempts. SW spoke with TRAVIS Lopez, who ordered a physician consult for Ute Mendoza NP to assess patient. Patient denies any current/ recent thoughts, ideations or plans. SW provided patient with resources for suicide hotline phone number. SW provided patient with numerous resources for outpatient psychotherapy and mental health, and [facility]. Substance abuse: Patient reports drinking alcohol daily. States he "drinks a lot daily" and stated that he started drinking many years ago. Stated he used to do drugs back in the day, but states that he quit using drugs a long time ago. States that he went to rehab for alcohol use and states that he was in rehab for about 3 months in [place], but does not remember when. Patient receptive to resources for outpatient and residential treatment programs. SW provided patient with numerous resources. Patient also provided verbal consent for health underwriter to make referral to [facility]. SW called and left [facility] for Rita at [facility] ([phone]) requesting call back. Plan/ Follow UP: Patient has signed the d/c consent form for persons without a permanent address, and it has been put in his paper chart. Patient indicated he is homeless, and that he wants to go to [facility], pickup location on [facility] upon d/c. SW provided him with a map and bus schedule. He will be provided with bus tokens upon d/c. Selmer Bridget was present during this interview and patient signing such paperwork indicating he will be going to [facility] upon d/c. SW also attempting to make referral to [facility] while patient is hospitalized. Patient denies any other questions/ concerns at this time. SW provided psychoeducation, psychosocial counseling, resources, support and encouragement. Patient denies any current/ recent thoughts, ideations or plans of suicide/ homicide, however patient will be evaluated by Roberto Mendoza.
[2019-01-08] MEDS: SOD FERRIC GLUC COMPLX 125 MG in SOD CHLORIDE 0.9% 100 ML IVPB SCH (15:26)
--- NOTE | 2019-01-08 16:57 | PN ---
Date/Time of Note Date/Time of Note DATE: 01/08/19 TIME: 16:55 Assessment/Plan VTE Prophylaxis Risk score (from Ns)>0 risk: 3 SCD applied (from Ns): Yes Pharmacological prophylaxis: other (scds) Lines/Catheters [facility] (from [facility] Peripheral IV Urinary Cath still in place: No Assessment/Plan Hospital Course Assessment: GI bleeding/hematemesis/coffee-ground emesis. EGD 01/07/19 Hiatal hernia Fady ulcer Esophagitis/gastritis BX:Gastric body, antrum biopsy: Chronic gastritis, moderate to severe, involving antral mucosa. Numerous bacteria compatible with Helicobacter pylori are identified in a Giemsa stain (positive control concurrently reviewed). -- There is no evidence of intestinal metaplasia, dysplasia or malignancy. H. pylori gastritis History of alcohol abuse. Probable alcoholic liver disease. Confusional state/encephalopathy Homelessness Plan: PPI bid, Carafate QID i2astls Biopsy results positive for H. pylori we will start triple therapy (amoxicillin 500 mg si caps p.o. twice daily times x 14 days, Clarithromycin 500 mg si tab p.o. twice daily times x 14 days, cont PPI BID) patient will need to follow-up with GI as an outpatient to repeat UBT 6 weeks after treatment is completed. Monitor H&H and transfuse as necessary. Patient seen in collaboration with Dr. Bee/Tamela Subjective: Course reviewed with nursing staff Patient interviewed and examined All labs, imaging and other results reviewed The patient resting in bed, no c/o n/v. Does c/o some mild upper abdominal pain. No over night events. Patient tolerating diet well. PHYSICAL EXAMINATION: GENERAL: Well developed, well nourished, somewhat confused in no acute distress SKIN: No lesions NECK: Supple, no masses, CHEST: Inspection within normal limits. CARDIOVASCULAR: Heart: Regular rate and rhythm, RESPIRATORY: Lungs clear to auscultation GASTROINTESTINAL AND LIVER: Abdomen: Soft, moderate epigastric tenderness, non- distended, no hernias, no masses, no organomegaly, no ascites, no guarding, no rebound tenderness, normoactive bowel sounds. Rectal: Deferred. EXTREMITIES: No cyanosis, clubbing or edema. Result Diagram: 01/08/19 1040 01/08/19 0532 Results 24hrs Laboratory Tests Test 01/07/19 20:27 01/08/19 05:32 01/08/19 07:48 01/08/19 10:40 Hemoglobin 7.7 L 10.3 #L 10.2 L Hematocrit 22.2 L 29.1 #L 29.1 L White Blood Count 7.3 Red Blood Count 3.31 L Mean Corpuscular 87.9 Volume Mean Corpuscular 31.1 Hemoglobin Mean Corpuscular 35.4 Hemoglobin Concent Red Cell 16.9 H Distribution Width Platelet Count 183 Mean Platelet 9.9 Volume Immature 0.500 H Granulocytes % Neutrophils % 61.1 Lymphocytes % 19.2 Monocytes % 18.7 H Eosinophils % 0.1 Basophils % 0.4 Nucleated Red Blood 0.4 H Cells % Immature 0.040 H Granulocytes # Neutrophils # 4.5 Lymphocytes # 1.4 Monocytes # 1.4 H Eosinophils # 0.0 Basophils # 0.0 Nucleated Red Blood 0.0 Cells # Sodium Level 134 L Potassium Level 3.3 L Chloride Level 93 L Carbon Dioxide 23 Level Anion Gap 18 H Blood Urea Nitrogen 8 # Creatinine 0.51 L Est Glomerular > 60 Filtrat Rate mL/min Glucose Level 83 Calcium Level 8.7 Phosphorus Level 2.1 L Magnesium Level 1.3 L Total Bilirubin 0.5 Direct Bilirubin 0.00 Indirect Bilirubin 0.5 Aspartate Amino 69 H Transf (AST/SGOT) Alanine 41 Aminotransferase (A LT/SGPT) Alkaline 62 Phosphatase Total Protein 6.5 # Albumin 3.6 Globulin 2.90 Albumin/Globulin 1.24 Ratio Lab Scanned Report BLOOD TRANSFUSION Exam/Review of Systems Exam Vitals Vital Signs Date Temp Pulse Resp B/P (MAP) Pulse Ox O2 O2 Flow FiO2 Time Delivery Rate 01/08/19 90 16:21 01/08/19 98.0 18 116/71 98 15:28 (86) 01/07/19 Room Air 17:27 01/07/19 10.0 15:54 Intake and Output 01/07/19 01/07/19 01/08/19 1515:00 23:00 07:00 IntakeIntake Total 975 ml 909 ml 1706 ml OutputOutput Total 200 ml 600 ml 950 ml BalanceBalance 775 ml 309 ml 756 ml Results Results 24hrs Laboratory Tests Test 01/07/19 20:27 01/08/19 05:32 01/08/19 07:48 01/08/19 10:40 Hemoglobin 7.7 L 10.3 #L 10.2 L Hematocrit 22.2 L 29.1 #L 29.1 L White Blood Count 7.3 Red Blood Count 3.31 L Mean Corpuscular 87.9 Volume Mean Corpuscular 31.1 Hemoglobin Mean Corpuscular 35.4 Hemoglobin Concent Red Cell 16.9 H Distribution Width Platelet Count 183 Mean Platelet 9.9 Volume Immature 0.500 H Granulocytes % Neutrophils % 61.1 Lymphocytes % 19.2 Monocytes % 18.7 H Eosinophils % 0.1 Basophils % 0.4 Nucleated Red Blood 0.4 H Cells % Immature 0.040 H Granulocytes # Neutrophils # 4.5 Lymphocytes # 1.4 Monocytes # 1.4 H Eosinophils # 0.0 Basophils # 0.0 Nucleated Red Blood 0.0 Cells # Sodium Level 134 L Potassium Level 3.3 L Chloride Level 93 L Carbon Dioxide 23 Level Anion Gap 18 H Blood Urea Nitrogen 8 # Creatinine 0.51 L Est Glomerular > 60 Filtrat Rate mL/min Glucose Level 83 Calcium Level 8.7 Phosphorus Level 2.1 L Magnesium Level 1.3 L Total Bilirubin 0.5 Direct Bilirubin 0.00 Indirect Bilirubin 0.5 Aspartate Amino 69 H Transf (AST/SGOT) Alanine 41 Aminotransferase (A LT/SGPT) Alkaline 62 Phosphatase Total Protein 6.5 # Albumin 3.6 Globulin 2.90 Albumin/Globulin 1.24 Ratio Lab Scanned Report BLOOD TRANSFUSION Medications Medication Current Medications IV Flush (NS 3 ml) 3 ml PER PROTOCOL IV ; Start 01/07/19 at 12:30 Ondansetron HCl (Zofran Inj) 4 mg Q6H PRN IV NAUSEA/VOMITING; Start 01/07/19 at 12:30 Acetaminophen (Tylenol Supp) 650 mg Q6H PRN [place] .PAIN 1-3 OR TEMP; Start 01/07/19 at 12:30 Multivitamins 10 ml/Thiamine HCl 100 mg/Folic Acid 1 mg/Sodium Chloride 1,011.2 ml @ 125 mls/ hr DAILY@09 IVPB Last administered on 01/08/19at 10:04; Admin Dose 125 MLS/HR; Start 01/07/19 at 14:00 Sucralfate (Carafate Susp) 1 gm QID PO Last administered on 01/08/19at 13:12; Admin Dose 1 GM; Start 01/07/19 at 17:00 Pantoprazole (Protonix Iv) 40 mg BID@06,18 IV ; Start 01/08/19 at 18:00 Ferric Sodium Gluconate Complex 125 mg/Sodium Chloride 100 ml @ 100 mls/hr DA VIKTOR@1300 IVPB Last administered on 01/08/19at 15:26; Admin Dose 100 MLS/HR; Start 01/08/19 at 13:00; Stop 01/10/19 at 13:59 Chlordiazepoxide (Librium) 25 mg TID PO Last administered on 01/08/19at 13:13; A dmin Dose 25 MG; Start 01/08/19 at 13:00 RENETTA OHARA Jan 08, 2019 16:57
[2019-01-08] MEDS: PANTOPRAZOLE 40 MG INJ IV SCH (17:28)
--- NOTE | 2019-01-08 18:42 | NUR ---
EOSS Patient remained stable during shift, vitals stable, SR 80-90s on the monitor. AAOx3. No N/V during shift. Protonix drip was dc'd and switched to protonix bid. K 3.3 replaced with 40 MEQ KCL IV. IV iron given. Mg 1.3, currently running 4 grams of magnesium sulfate. Tolerating full liquid diet well. Per Jessica SYSTEMS ADMINISTRATION ANALYST, patient may be downgraded to Med-Surg. Will endorse to oncoming RN.
--- NOTE | 2019-01-08 19:45 | NUR ---
TRANSFER REPORT GIVEN TO SKYLER MARIA. PATIENT GOING TO ROOM 2259. PATIENT STABLE. NO COMPLAINTS. WITH ONGOING BANANA BAG AT 125/HR AND MG REPLACEMENT @25 CC/HR.
[2019-01-08] MEDS ORDERED: AMOXICILLIN 500 MG CAP PO SCH (21:00)
[2019-01-09] MEDS: CLARITHROMYCIN 500 MG TAB PO SCH ×3 (00:41→21:14)
[2019-01-09 02:51] VITALS: BP 117/62; PULSE 95; RESP 16
[2019-01-09] MEDS: PANTOPRAZOLE 40 MG INJ IV SCH ×2 (05:42→17:02)
--- NOTE | 2019-01-09 06:00 | NUR ---
RN Notes Patient arrived to unit via bed in stable condition. Patient is alert and oriented to person, place, and situation. Able to verbalize needs; primarily Nepali speaking. MVI infusion complete upon arrival; Magnesium completed and input recorded. Patient on room air; vital signs within normal limits. Denying any pain or discomfort. Skin assessment completed; abrasions and discolorations noted and documented. Wound care provided to patient. Instructed patient to use call light button for assistance with BRP. Patient's bed oriented to new room, call button, as well as facility routines such as hourly rounding and vital sign assessments. Patient verbalized understanding. Addendum: 01/09/19 at 0728 by VILMA ABREU RN Reported critically low K+ to Dr. Frederick at 0658, received order for stat PO potassium (see interventions) and for AM shift to follow up. Orders carried out. Endorsed to SKYLER Trent upon patient's transfer from unit.
[2019-01-09] MEDS ORDERED: POTASSIUM CHLORIDE (SR) 20 MEQ TAB PO STA (07:00)
--- NOTE | 2019-01-09 07:03 | NUR ---
critical lab value endorsed to primary care RN
--- NOTE | 2019-01-09 07:31 | NUR ---
aox2, received from in stable condition via wheelchair
[2019-01-09] MEDS: CHLORDIAZEPOXIDE 25 MG CAP PO SCH ×3 (08:04→21:14)
[2019-01-09] MEDS: SUCRALFATE (100 MG/ML) 10ML CUP PO SCH ×4 (08:04→21:14)
[2019-01-09] MEDS: MULTIVITAMINS 10 ML, THIAMINE 100 MG, FOLIC ACID 1 MG in SOD CHLORIDE 0.9% 1,000 ML IVPB SCH (09:20)
[2019-01-09] MEDS: AMOXICILLIN 500 MG CAP PO SCH ×2 (09:21→21:14)
[2019-01-09] MEDS ORDERED: MAGNESIUM SULFATE 2 GM/50 ML 50 ML IVPB ONE (10:00)
[2019-01-09] MEDS ORDERED: SOD CHLORIDE 0.9% 500 ML IV ONE (10:00)
--- NOTE | 2019-01-09 10:16 | PSY ---
Date/Time of Note Date/Time of Note DATE: 01/09/19 TIME: 10:07 Psychiatric Subjective Eval Consent Pt consented to telemedicine: No Subjective Evaluation Patient location: inpatient Chief Complaint: BIB RA FOR EVAL OF HEMATEMESIS. ETOH History of present illness Patient is a 63-year-old male with alcohol abuse, currently admitted for altered, having coffee-ground emesis. Patient is Hong [place]er-speaking only, translation done by staff. On a [id number] evaluation, patient is tearful states he has lost many jobs because of his drinking , because ihe has no control. He denies suicidal ideation, but reports feeling hopeless and helpless, reports sadness and willing to be helped. Discussed risk and benefits of Lexapro and he agreed he will take medication. Also talked to patient about joining an alcohol Anonymous group in his area with [place]er-speaking members . . Past psychiatric history History of depression Medical history Problems Medical Problems: (1) Alcoholic intoxication Status: Acute (2) GI bleed Status: Acute Allergies: Coded Allergies: No Known Allergy (Unverified , 01/07/19) Substance Abuse Substance abuse history: Yes Prior substance abuse treatmen: Yes Social History Marital status: other DPA/Conservatorship: No Psychiatric Objective Eval Review of Systems: Review of Systems: Not Applicable Physical Examination: Physical Examination: Not Applicable Mental Status Examination: Appearance: Disheveled Eye Contact: Fair Psychomotor Activity: Slow Behavior: Cooperative Speech: Clear AFFECT: Flat Mood: Depressed Though Process: Linear Suicidal: No Homicidal: No On 72 hour hold: No Orientation: x4 Insight: Impared Judgement: Impared Attention Span: Distractible Laboratory Results Laboratory Tests Test 01/07/19 10:43 01/07/19 10:44 01/07/19 11:14 01/07/19 15:03 White Blood 7.5 10^3/ul Count Red Blood Count 3.16 10^6/ul Hemoglobin 9.9 g/dl 8.2 g/dl Hematocrit 29.1 % 24.0 % Mean Corpuscular 92.1 fl Volume Mean Corpuscular 31.3 pg Hemoglobin Mean Corpuscular 34.0 g/dl Hemoglobin Ivanna nt Red Cell 17.5 % Distribution Width Platelet Count 213 10^3/UL Mean Platelet 9.5 fl Volume Immature 0.400 % Granulocytes % Neutrophils % 83.6 % Lymphocytes % 6.8 % Monocytes % 8.8 % Eosinophils % 0.1 % Basophils % 0.3 % Nucleated Red 0.0 /100WBC Blood Cells % Immature 0.030 10^3/ul Granulocytes # Neutrophils # 6.3 10^3/ul Lymphocytes # 0.5 10^3/ul Monocytes # 0.7 10^3/ul Eosinophils # 0.0 10^3/ul Basophils # 0.0 10^3/ul Nucleated Red 0.0 10^3/ul Blood Cells # Prothrombin Time 15.9 Sec Prothrombin Time 1.2 Ratio INR 1.26 International Normalized Ratio Activated 33.6 Sec Partial Thrombop last Time Sodium Level 135 mmol/L Potassium Level 3.7 mmol/L Chloride Level 89 mmol/L Carbon Dioxide 22 mmol/L Level Anion Gap 24 Blood Urea 20 mg/dl Nitrogen Creatinine 0.67 mg/dl Est Glomerular > 60 mL/min Filtrat Rate mL/min Glucose Level 110 mg/dl Calcium Level 8.8 mg/dl Total Bilirubin 0.3 mg/dl Direct Bilirubin 0.00 mg/dl Indirect 0.3 mg/dl Bilirubin Aspartate Amino 106 IU/L Transf (AST/SGOT ) Alanine 48 IU/L Aminotransferase (ALT/SGPT) Alkaline 85 IU/L Phosphatase Total Protein 8.1 g/dl Albumin 4.5 g/dl Globulin 3.60 g/dl Albumin/Globulin 1.25 Ratio Lipase 228 U/L Ethyl Alcohol 252.0 mg/dl Level Urine Color YELLOW Urine Clarity CLEAR Urine pH 6.0 Urine Specific 1.021 [place] Urine Ketones 2+ mg/dL Urine Nitrite NEGATIVE mg/dL Urine Bilirubin NEGATIVE mg/dL Urine 1+ mg/dL Urobilinogen Urine Leukocyte NEGATIVE Pete/ul Esterase Urine 4 /HPF Microscopic RBC Urine 1 /HPF Microscopic WBC Urine Bacteria FEW /HPF Urine Hemoglobin 2+ mg/dL Urine Glucose NEGATIVE mg/dL Urine Total 2+ mg/dl Protein Test 01/07/19 20:27 01/08/19 05:32 01/08/19 07:48 01/08/19 10:40 Hemoglobin 7.7 g/dl 10.3 g/dl 10.2 g/dl Hematocrit 22.2 % 29.1 % 29.1 % White Blood 7.3 10^3/ul Count Red Blood Count 3.31 10^6/ul Mean Corpuscular 87.9 fl Volume Mean Corpuscular 31.1 pg Hemoglobin Mean Corpuscular 35.4 g/dl Hemoglobin Ivanna nt Red Cell 16.9 % Distribution Width Platelet Count 183 10^3/UL Mean Platelet 9.9 fl Volume Immature 0.500 % Granulocytes % Neutrophils % 61.1 % Lymphocytes % 19.2 % Monocytes % 18.7 % Eosinophils % 0.1 % Basophils % 0.4 % Nucleated Red 0.4 /100WBC Blood Cells % Immature 0.040 10^3/ul Granulocytes # Neutrophils # 4.5 10^3/ul Lymphocytes # 1.4 10^3/ul Monocytes # 1.4 10^3/ul Eosinophils # 0.0 10^3/ul Basophils # 0.0 10^3/ul Nucleated Red 0.0 10^3/ul Blood Cells # Sodium Level 134 mmol/L Potassium Level 3.3 mmol/L Chloride Level 93 mmol/L Carbon Dioxide 23 mmol/L Level Anion Gap 18 Blood Urea 8 mg/dl Nitrogen Creatinine 0.51 mg/dl Est Glomerular > 60 mL/min Filtrat Rate mL/min Glucose Level 83 mg/dl Calcium Level 8.7 mg/dl Phosphorus Level 2.1 mg/dl Magnesium Level 1.3 mg/dl Total Bilirubin 0.5 mg/dl Direct Bilirubin 0.00 mg/dl Indirect 0.5 mg/dl Bilirubin Aspartate Amino 69 IU/L Transf (AST/SGOT ) Alanine 41 IU/L Aminotransferase (ALT/SGPT) Alkaline 62 IU/L Phosphatase Total Protein 6.5 g/dl Albumin 3.6 g/dl Globulin 2.90 g/dl Albumin/Globulin 1.24 Ratio Lab Scanned BLOOD TRANSFUSIO Report N Test 01/09/19 05:21 White Blood 5.7 10^3/ul Count Red Blood Count 3.20 10^6/ul Hemoglobin 9.9 g/dl Hematocrit 28.3 % Mean Corpuscular 88.4 fl Volume Mean Corpuscular 30.9 pg Hemoglobin Mean Corpuscular 35.0 g/dl Hemoglobin Ivanna nt Red Cell 16.6 % Distribution Width Platelet Count 181 10^3/UL Mean Platelet 10.1 fl Volume Immature 0.700 % Granulocytes % Neutrophils % 61.2 % Lymphocytes % 21.0 % Monocytes % 15.3 % Eosinophils % 1.1 % Basophils % 0.7 % Nucleated Red 0.9 /100WBC Blood Cells % Immature 0.040 10^3/ul Granulocytes # Neutrophils # 3.5 10^3/ul Lymphocytes # 1.2 10^3/ul Monocytes # 0.9 10^3/ul Eosinophils # 0.1 10^3/ul Basophils # 0.0 10^3/ul Nucleated Red 0.1 10^3/ul Blood Cells # Sodium Level 129 mmol/L Potassium Level 2.8 mmol/L Chloride Level 87 mmol/L Carbon Dioxide 30 mmol/L Level Anion Gap 12 Blood Urea 5 mg/dl Nitrogen Creatinine 0.45 mg/dl Est Glomerular > 60 mL/min Filtrat Rate mL/min Glucose Level 99 mg/dl Calcium Level 8.4 mg/dl Magnesium Level 1.6 mg/dl Assessment and Plan Assessment/Diagnosis Diagnosis Major depressive disorder severe recurrent Recommendation/Plan Medication Management Lexapro 5 mg daily Multiple antipsychotics: No Psychotherapy Social service to help patient with resources regarding alcohol Anonymous preferably once with Hong [place]er-speaking member , provide supportive therapy Discharge Disposition: Other Legal Status: Voluntary (Does not meet criteria for 5150 hold) YANCY OBANDO NP Jan 09, 2019 10:16
[2019-01-09] MEDS: ESCITALOPRAM 10 MG TAB PO SCH (11:39)
[2019-01-09] MEDS ORDERED: LORAZEPAM 2 MG INJ IV PRN (13:00)
[2019-01-09 14:00] VITALS: BP 103/65; PULSE 81; RESP 18
[2019-01-09] MEDS: SOD FERRIC GLUC COMPLX 125 MG in SOD CHLORIDE 0.9% 100 ML IVPB SCH (14:11)
--- NOTE | 2019-01-09 14:11 | PN ---
Date/Time of Note Date/Time of Note DATE: 01/09/19 TIME: 13:49 Assessment/Plan VTE Prophylaxis Risk score (from Ns)>0 risk: 2 SCD applied (from Ns): Yes Pharmacological prophylaxis: NA/contraindicated Pharm contraindication: low risk/ambulating Lines/Catheters [facility] Peripheral IV Urinary Cath still in place: No Assessment/Plan Hospital Course SUBJECTIVE: No acute overnight episodes. Tolerating diet. OBJECTIVE: Vital signs-see below PHYSICAL EXAM: Constitutional: Disheveled male, lying in bed comfortably. Psych: nl mood/affect, no complaints Head: atraumatic, normocephalic Eyes: nl conjunctiva, nl sclera ENMT: mucosa pink and moist, nl external ears & nose Neck: non-tender, supple Respiratory: clear to auscultation, normal air movement Cardiovascular: nl pulses, regular rate and rhythm Gastrointestinal: non-tender, soft, bowel sounds active in all 4 quadrants. Musculoskeletal/extremities: nl extremities to inspection, motor strength equal bilaterally, no focal deficit. Normal pulses,no cyanosis, no edema. Neurological: Alert oriented x3. nl strength Skin: nl turgor ASSESSMENT/PLAN: 63-year-old homeless male who is also a poor historian with alcoholism, brought in by paramedics after found on the street intoxicated, having coffee-ground emesis. 1. Hematemesis/Upper GIB. EGD with moderate to severe gastritis/Fady ulcer/esophagitis/gastritis. -Continue PPI/Carafate 2. H. pylori gastritis -On appropriate agents. -Recommend follow-up in 6 weeks. 3. Acute blood loss anemia requiring multiple transfusion Secondary to GI bleed. -Now stable. --Continue iron supplementation. 4. EtOH abuse/intoxication -Continue banana bag, Librium dose. -Cessation advised. -fur floor worker to assist with rehabilitation program if patient is interested. 5. Encephalopathy, likely toxic metabolic 2/2 alcoholism -Resolved. -Supportive care 6. Homelessness -fur floor worker assistance. 7. Depressive disorders. -Appreciate psych eval and patient has been started on Lexapro. 8. Electrolyte derangement -Replete and monitor. 9. Hyponatremia, likely hypotonic. -We will give IV fluids and will add osmolality. Monitor sodium level. DVT prophylaxis: SCDs PUD prophylaxis: Protonix Disposition: Overall, patient with clinical improvement. At this time, I recommend advancing diet, repeat labs in a.m. and discharge planning in next 24 hours with social service follow-up for homelessness. Patient was seen in collaboration with . Result Diagram: 01/09/1921 01/09/19 0521 Results 24hrs Laboratory Tests Test 01/09/19 05:21 White Blood Count 5.7 # Red Blood Count 3.20 L Hemoglobin 9.9 L Hematocrit 28.3 L Mean Corpuscular Volume 88.4 Mean Corpuscular Hemoglobin 30.9 Mean Corpuscular Hemoglobin Concent 35.0 Red Cell Distribution Width 16.6 H Platelet Count 181 Mean Platelet Volume 10.1 Immature Granulocytes % 0.700 H Neutrophils % 61.2 Lymphocytes % 21.0 Monocytes % 15.3 H Eosinophils % 1.1 Basophils % 0.7 Nucleated Red Blood Cells % 0.9 H Immature Granulocytes # 0.040 H Neutrophils # 3.5 Lymphocytes # 1.2 Monocytes # 0.9 Eosinophils # 0.1 Basophils # 0.0 Nucleated Red Blood Cells # 0.1 H Sodium Level 129 L Potassium Level 2.8 *L Chloride Level 87 L Carbon Dioxide Level 30 Anion Gap 12 Blood Urea Nitrogen 5 L Creatinine 0.45 L Est Glomerular Filtrat Rate mL/min > 60 Glucose Level 99 Osmolality 260 L Calcium Level 8.4 Magnesium Level 1.6 L Exam/Review of Systems Exam Vitals Vital Signs Date Temp Pulse Resp B/P (MAP) Pulse Ox O2 O2 Flow FiO2 Time Delivery Rate 01/09/19 98.3 95 16 117/62 93 02:51 (80) 01/07/19 Room Air 17:27 01/07/19 10.0 15:54 Intake and Output 01/08/19 01/08/19 01/09/19 1515:00 23:00 07:00 IntakeIntake Total 940 ml OutputOutput Total 750 ml 800 ml BalanceBalance 190 ml -800 ml Results Results 24hrs Laboratory Tests Test 01/09/19 05:21 White Blood Count 5.7 # Red Blood Count 3.20 L Hemoglobin 9.9 L Hematocrit 28.3 L Mean Corpuscular Volume 88.4 Mean Corpuscular Hemoglobin 30.9 Mean Corpuscular Hemoglobin Concent 35.0 Red Cell Distribution Width 16.6 H Platelet Count 181 Mean Platelet Volume 10.1 Immature Granulocytes % 0.700 H Neutrophils % 61.2 Lymphocytes % 21.0 Monocytes % 15.3 H Eosinophils % 1.1 Basophils % 0.7 Nucleated Red Blood Cells % 0.9 H Immature Granulocytes # 0.040 H Neutrophils # 3.5 Lymphocytes # 1.2 Monocytes # 0.9 Eosinophils # 0.1 Basophils # 0.0 Nucleated Red Blood Cells # 0.1 H Sodium Level 129 L Potassium Level 2.8 *L Chloride Level 87 L Carbon Dioxide Level 30 Anion Gap 12 Blood Urea Nitrogen 5 L Creatinine 0.45 L Est Glomerular Filtrat Rate mL/min > 60 Glucose Level 99 Osmolality 260 L Calcium Level 8.4 Magnesium Level 1.6 L Medications Medication Current Medications IV Flush (NS 3 ml) 3 ml PER PROTOCOL IV ; Start 01/07/19 at 12:30 Ondansetron HCl (Zofran Inj) 4 mg Q6H PRN IV NAUSEA/VOMITING; Start 01/07/19 at 12:30 Acetaminophen (Tylenol Supp) 650 mg Q6H PRN [place] .PAIN 1-3 OR TEMP; Start 01/07/19 at 12:30 Multivitamins 10 ml/Thiamine HCl 100 mg/Folic Acid 1 mg/Sodium Chloride 1,011.2 ml @ 125 mls/ hr DAILY@09 IVPB Last administered on 01/09/19at 09:20; Admin Dose 125 MLS/HR; Start 01/07/19 at 14:00 Sucralfate (Carafate Susp) 1 gm QID PO Last administered on 01/09/19at 12:03; Ad min Dose 1 GM; Start 01/07/19 at 17:00 Pantoprazole (Protonix Iv) 40 mg BID@06,18 IV Last administered on 01/09/19at 05:42; Admin Dose 40 MG; Start 01/08/19 at 18:00 Ferric Sodium Gluconate Complex 125 mg/Sodium Chloride 100 ml @ 100 mls/hr DAILY@1300 IVPB Last administered on 01/08/19at 15:26; Admin Dose 100 MLS/HR; Start 01/08/19 at 13:00; Stop 01/10/19 at 13:59 Chlordiazepoxide (Librium) 25 mg TID PO Last administered on 01/09/19at 12:03; Admin Dose 25 MG; Start 01/08/19 at 13:00 Clarithromycin (Biaxin) 500 mg BID PO Last administered on 01/09/19at 09:21; Admin Dose 500 MG; Start 01/08/19 at 21:00 Amoxicillin (Amoxicillin) 1,000 mg BID PO Last administered on 01/09/19at 09:21; Admin Dose 1,000 MG; Start 01/09/19 at 09:00 Escitalopram Oxalate (Lexapro) 5 mg DAILY PO Last administered on 01/09/19at 1 1:39; Admin Dose 5 MG; Start 01/09/19 at 11:00 Lorazepam (Ativan) 1 mg Q4H PRN IV AGITATION; Start 01/09/19 at 13:00 CHINO AGUILAR NP Jan 09, 2019 14:01
--- NOTE | 2019-01-09 16:06 | NUR ---
SS NOTE: F/U -FAXED PT REFERRAL TO [facility] FACILITATED REFERRAL TO [facility] FOR ALCOHOL REHAB. THIS HOUSE WORKER SPOKE WITH DENTAL MOLD MAKER ELIER WHO UPDATED THAT THERE ARE NO AVAILABLE MALE THE [facility] BEDS AT THIS TIME. SW FAXED OVER PACKET, PT WILL BE PLACED ON WAITING LIST. SW ATTEMPTED TO SPEAK WITH PT AT BEDSIDE, PT IS LETHARGIC AND UNABLE TO PARTICIPATE IN DISCUSSION REGARDING D/C PLAN. PER PT'S RN TRINH, PT IS NOT MEDICALLY CLEARED FOR D/C. PLAN IS TO F/U WITH PT AT MORE APPROPRIATE TIME AND DISCUSS WAITING LIST PROCESS REGARDING [facility]. SW REMAINS AVAILABLE FOR F/U NEEDED.
--- NOTE | 2019-01-09 16:15 | NUR ---
aox2, no acute distress noted, no complaints of pain during this shift, medications given as ordered
--- NOTE | 2019-01-09 16:50 | PN ---
Date/Time of Note Date/Time of Note DATE: 01/09/19 TIME: 16:47 Assessment/Plan VTE Prophylaxis Risk score (from [facility])>0 risk: 2 [place]CD applied [place] [facility] [place] Yes Pharmacological prophylaxis: NA/contraindicated Pharm contraindication: liver dx Lines/Catheters IV Catheter Type (from [facility]): Peripheral IV Urinary Cath still in place: No Assessment/Plan Assessment/Plan Assessment: GI bleeding/hematemesis/coffee-ground emesis. EGD 01/07/19 Hiatal hernia Fady ulcer Esophagitis/gastritis BX:Gastric body, antrum biopsy: Chronic gastritis, moderate to severe, involving antral mucosa. Numerous bacteria compatible with Helicobacter pylori are identified in a Giemsa stain (positive control concurrently reviewed). -- There is no evidence of intestinal metaplasia, dysplasia or malignancy. H. pylori gastritis History of alcohol abuse. Probable alcoholic liver disease. Confusional state/encephalopathy Homelessness Plan: PPI bid, Carafate QID [id number] Amoxicillin 500 mg si caps p.o. twice daily times x 14 days, Clarithromycin 500 mg si tab p.o. twice daily times x 14 days, cont PPI BID Follow-up with GI as an outpatient to repeat UBT 6 weeks after treatment is completed. Monitor H&H and transfuse as necessary. Patient seen in collaboration with Dr. Bee/Tamela Subjective: Course reviewed with nursing staff Patient interviewed and examined All labs, imaging and other results reviewed The patient is doing well. Denies abdominal pain, nausea or vomiting. Tolerating diet well. We will continue treatment of H. pylori gastritis.. PHYSICAL EXAMINATION: GENERAL: Well developed, well nourished, somewhat confused in no acute distress SKIN: No lesions NECK: Supple, no masses, CHEST: Inspection within normal limits. CARDIOVASCULAR: Heart: Regular rate and rhythm, RESPIRATORY: Lungs clear to auscultation GASTROINTESTINAL AND LIVER: Abdomen: Soft, moderate epigastric tenderness, non-d istended, no hernias, no masses, no organomegaly, no ascites, no guarding, no rebound tenderness, normoactive bowel sounds. Rectal: Deferred. EXTREMITIES: No cyanosis, clubbing or edema. Result Diagram: 01/09/19 0521 01/09/19 1447 Results 24hrs Laboratory Tests Test 01/09/19 05:21 01/09/19 14:47 White Blood Count 5.7 # Red Blood Count 3.20 L Hemoglobin 9.9 L Hematocrit 28.3 L Mean Corpuscular Volume 88.4 Mean Corpuscular Hemoglobin 30.9 Mean Corpuscular Hemoglobin Concent 35.0 Red Cell Distribution Width 16.6 H Platelet Count 181 Mean Platelet Volume 10.1 Immature Granulocytes % 0.700 H Neutrophils % 61.2 Lymphocytes % 21.0 Monocytes % 15.3 H Eosinophils % 1.1 Basophils % 0.7 Nucleated Red Blood Cells % 0.9 H Immature Granulocytes # 0.040 H Neutrophils # 3.5 Lymphocytes # 1.2 Monocytes # 0.9 Eosinophils # 0.1 Basophils # 0.0 Nucleated Red Blood Cells # 0.1 H Sodium Level 129 L 128 L Potassium Level 2.8 *L 2.8 *L Chloride Level 87 L 89 L Carbon Dioxide Level 30 29 Anion Gap 12 10 Blood Urea Nitrogen 5 L 6 L Creatinine 0.45 L 0.44 L Est Glomerular Filtrat Rate mL/min > 60 > 60 Glucose Level 99 104 Osmolality 260 L Calcium Level 8.4 8.8 Magnesium Level 1.6 L CC: CLARIBEL BEE MD ; Exam/Review of Systems Exam Vitals Vital Signs Date Temp Pulse Resp B/P (MAP) Pulse Ox O2 O2 Flow FiO2 Time Delivery Rate 01/09/19 98.0 81 18 103/65 98 Room Air 14:00 (78) 01/07/19 10.0 15:54 Intake and Output 01/08/19 01/08/19 01/09/19 1515:00 23:00 07:00 IntakeIntake Total 940 ml OutputOutput Total 750 ml 800 ml BalanceBalance 190 ml -800 ml Results Results 24hrs Laboratory Tests Test 01/09/19 05:21 01/09/19 14:47 White Blood Count 5.7 # Red Blood Count 3.20 L Hemoglobin 9.9 L Hematocrit 28.3 L Mean Corpuscular Volume 88.4 Mean Corpuscular Hemoglobin 30.9 Mean Corpuscular Hemoglobin Concent 35.0 Red Cell Distribution Width 16.6 H Platelet Count 181 Mean Platelet Volume 10.1 Immature Granulocytes % 0.700 H Neutrophils % 61.2 Lymphocytes % 21.0 Monocytes % 15.3 H Eosinophils % 1.1 Basophils % 0.7 Nucleated Red Blood Cells % 0.9 H Immature Granulocytes # 0.040 H Neutrophils # 3.5 Lymphocytes # 1.2 Monocytes # 0.9 Eosinophils # 0.1 Basophils # 0.0 Nucleated Red Blood Cells # 0.1 H Sodium Level 129 L 128 L Potassium Level 2.8 *L 2.8 *L Chloride Level 87 L 89 L Carbon Dioxide Level 30 29 Anion Gap 12 10 Blood Urea Nitrogen 5 L 6 L Creatinine 0.45 L 0.44 L Est Glomerular Filtrat Rate mL/min > 60 > 60 Glucose Level 99 104 Osmolality 260 L Calcium Level 8.4 8.8 Magnesium Level 1.6 L Medications Medication Current Medications IV Flush (NS 3 ml) 3 ml PER PROTOCOL IV ; Start 01/07/19 at 12:30 Ondansetron HCl (Zofran Inj) 4 mg Q6H PRN IV NAUSEA/VOMITING; Start 01/07/19 at 12:30 Acetaminophen (Tylenol Supp) 650 mg Q6H PRN [place] .PAIN 1-3 OR TEMP; Start 01/07/19 at 12:30 Multivitamins 10 ml/Thiamine HCl 100 mg/Folic Acid 1 mg/Sodium Chloride 1,011.2 ml @ 125 mls/ hr DAILY@09 IVPB Last administered on 01/09/19 09:20; Admin Dose 125 MLS/HR; Start 01/07/19 at 14:00 Sucralfate (Carafate Susp) 1 gm QID PO Last administered on 01/09/19 12:03; Admin Dose 1 GM; Start 01/07/19 at 17:00 Pantoprazole (Protonix Iv) 40 mg BID@06,18 IV Last administered on 01/09/19 05:42; Admin Dose 40 MG; Start 01/08/19 at 18:00 Ferric Sodium Gluconate Complex 125 mg/Sodium Chloride 100 ml @ 100 mls/hr DAILY@1300 IVPB Last administered on 01/09/19 14:11; Admin Dose 100 MLS/HR; St art 01/08/19 at 13:00; Stop 01/10/19 at 13:59 Chlordiazepoxide (Librium) 25 mg TID PO Last administered on 01/09/19 12:03; Admin Dose 25 MG; Start 01/08/19 at 13:00 Clarithromycin (Biaxin) 500 mg BID PO Last administered on 01/09/19 09:21; Admin Dose 500 MG; Start 01/08/19 at 21:00 Amoxicillin (Amoxicillin) 1,000 mg BID PO Last administered on 01/09/19at 09:21; Admin Dose 1,000 MG; Start 01/09/19 at 09:00 Escitalopram Oxalate (Lexapro) 5 mg DAILY PO Last administered on 01/09/19at 11:39; Admin Dose 5 MG; Start 01/09/19 at 11:00 Lorazepam (Ativan) 1 mg Q4H PRN IV AGITATION; Start 01/09/19 at 13:00 Potassium Chloride 100 ml @ 50 mls/hr Q2H IVPB ; Start 01/09/19 at 17:00; Stop 01/09/19 at 20:59; Status UNSAILAJA [facility] CLIENT SERVICES SPECIALIST Jan 09, 2019 16:50
[2019-01-09] MEDS: POTASSIUM CHLORIDE 100 ML IVPB SCH ×2 (18:01→21:14)
[2019-01-09 20:20] VITALS: BP_SYST 104; BP_SYST 4; BP_DIAS 75; PULSE 70; RESP 18
[2019-01-09] MEDS ORDERED: traZODone 50 MG TAB PO ONE (23:00)
[2019-01-10 02:05] VITALS: BP 126/69; PULSE 101; RESP 18
[2019-01-10] MEDS: PANTOPRAZOLE 40 MG INJ IV SCH ×2 (06:21→17:09)
--- NOTE | 2019-01-10 07:29 | NUR ---
Pt is alert and oriented x3-4. Forgetful at times. He has been ambulating to the restroom, but he needs moderate assistance. A new IV was placed this morning. Vital signs have been stable. Pt tried to leave the hospital this morning. Security was called. No other acute event overnight. Will continue monitoring this morning.
[2019-01-10 07:41] VITALS: BP 111/68; PULSE 86; RESP 16
[2019-01-10] MEDS: CHLORDIAZEPOXIDE 25 MG CAP PO SCH ×3 (08:26→21:34)
[2019-01-10] MEDS: MULTIVITAMINS 10 ML, THIAMINE 100 MG, FOLIC ACID 1 MG in SOD CHLORIDE 0.9% 1,000 ML IVPB SCH (08:26)
[2019-01-10] MEDS: AMOXICILLIN 500 MG CAP PO SCH ×2 (08:26→21:34)
[2019-01-10] MEDS: CLARITHROMYCIN 500 MG TAB PO SCH ×3 (08:26→22:24)
[2019-01-10] MEDS: SUCRALFATE (100 MG/ML) 10ML CUP PO SCH ×4 (08:26→21:34)
[2019-01-10] MEDS: ESCITALOPRAM 10 MG TAB PO SCH (08:26)
--- NOTE | 2019-01-10 09:10 | NUR ---
CRITICAL LAB* notified regarding pt's K+ 2.8. aware, coming onto unit shortly.
[2019-01-10] MEDS ORDERED: POTASSIUM CHLORIDE (SR) 20 MEQ TAB PO STA (09:34)
--- NOTE | 2019-01-10 09:47 | PN ---
Date/Time of Note Date/Time of Note DATE: 01/10/19 TIME: 09:43 Assessment/Plan VTE Pro[place]axis [place] [facility] [place]: 3 SCD applied [place] [facility] [place] SCD contraindicated: low risk/ambulating Pharmacological prophylaxis: NA/contraindicated Pharm contraindication: bleeding (GI bleed) Lines/Catheters IV [facility]ter [facility] (from [facility] Saline Lock Urinary Cath still in place: No Assessment/Plan Problems: (1) GI bleed Status: Acute Comment: He is on full dose aggressive therapy. Can transition the IV Protonix to oral Protonix tomorrow morning. Full-court treatment of the H. pylori infection. Qualifiers: GI bleed type/associated pathology: gastric ulcer Qualified Codes: K25.4 - Chronic or unspecified gastric ulcer with hemorrhage (2) Helicobacter pylori gastritis Status: Acute Comment: On antibiotic therapy now we have gone ahead and put in the time limits for the dosing of the antibiotics as per standard dosing protocol (3) Hiatal hernia Status: Chronic Comment: Noted. The proton pump inhibitor will be useful (4) Alcoholism /alcohol abuse Status: Chronic Comment: Counseled and social work is also involved in his case. This also matters for his being homeless (5) Alcoholic intoxication Status: Resolved Comment: He is in the hospital and is not showing evidence of delirium tremens or actual withdrawal fortunately and somewhat surprisingly per Qualifiers: Complication of substance-induced condition: uncomplicated Qualified Codes: F10.920 - Alcohol use, unspecified with intoxication, uncomplicated (6) Homeless single person Status: Chronic Comment: Social work intervention (7) Hypomagnesemia Status: Acute Comment: Replace IV, this is a sign of his poor nutritional state and also some of his dehydration (8) Hyponatremia Status: Resolved Comment: Resolved. (9) Anemia Status: Chronic Comment: He has had some blood loss we will go ahead and perform the standard workup. Please note he is already on IV iron replacement therapy Qualifiers: Iron deficiency anemia type: chronic blood loss (10) Essential hypertension Status: Chronic Comment: Stable at this time (11) Major depressive disorder, recurrent severe without psychotic features Status: Chronic Comment: On SSRI as per psychiatric consult Result Diagram: 01/10/19 0733 01/10/19 0733 Results 24hrs Laboratory Tests Test 01/09/19 14:47 01/10/19 07:33 Sodium Level 128 L 135 Potassium Level 2.8 *L 2.8 *L Chloride Level 89 L 96 L Carbon Dioxide Level 29 29 Anion Gap 10 10 Blood Urea Nitrogen 6 L 4 L Creatinine 0.44 L 0.52 L Est Glomerular Filtrat Rate mL/min > 60 > 60 Glucose Level 104 97 Calcium Level 8.8 9.3 White Blood Count 5.0 Red Blood Count 3.35 L Hemoglobin 10.4 L Hematocrit 30.5 L Mean Corpuscular Volume 91.0 Mean Corpuscular Hemoglobin 31.0 Mean Corpuscular Hemoglobin Concent 34.1 Red Cell Distribution Width 17.3 H Platelet Count 210 Mean Platelet Volume 10.3 Immature Granulocytes % 0.400 Neutrophils % 58.2 Lymphocytes % 22.9 Monocytes % 16.7 H Eosinophils % 1.2 Basophils % 0.6 Nucleated Red Blood Cells % 0.6 H Immature Granulocytes # 0.020 Neutrophils # 2.9 Lymphocytes # 1.2 Monocytes # 0.8 Eosinophils # 0.1 Basophils # 0.0 Nucleated Red Blood Cells # 0.0 Magnesium Level 1.6 L Subjective 24 Hr Interval Summary Free Text/Dictation Patient resting in bed after having had breakfast. Constitutional: no complaints (No fevers chills or sweats) Respiratory: no complaints Cardiovascular: no complaints Gastrointestinal: no complaints (Reports no abdominal pain or discomfort) Exam/Review of Systems Exam Vitals Vital Signs Date Temp Pulse Resp B/P (MAP) Pulse Ox O2 O2 Flow FiO2 Time Delivery Rate 01/10/19 98.3 86 16 111/68 98 Room Air 07:41 (82) 01/07/19 10.0 15:54 Intake and Output 01/09/19 01/09/19 01/10/19 1515:00 23:00 07:00 IntakeIntake Total 550 ml 1000 ml 912 ml BalanceBalance 550 ml 1000 ml 912 ml Constitutional: alert, oriented Respiratory: clear to auscultation, normal air movement Cardiovascular: regular rate and rhythm, nl pulses Gastrointestinal: soft, nl liver, spleen, non-tender Results Results 24hrs Laboratory Tests Test 01/09/19 14:47 01/10/19 07:33 Sodium Level 128 L 135 Potassium Level 2.8 *L 2.8 *L Chloride Level 89 L 96 L Carbon Dioxide Level 29 29 Anion Gap 10 10 Blood Urea Nitrogen 6 L 4 L Creatinine 0.44 L 0.52 L Est Glomerular Filtrat Rate mL/min > 60 > 60 Glucose Level 104 97 Calcium Level 8.8 9.3 White Blood Count 5.0 Red Blood Count 3.35 L Hemoglobin 10.4 L Hematocrit 30.5 L Mean Corpuscular Volume 91.0 Mean Corpuscular Hemoglobin 31.0 Mean Corpuscular Hemoglobin Concent 34.1 Red Cell Distribution Width 17.3 H Platelet Count 210 Mean Platelet Volume 10.3 Immature Granulocytes % 0.400 Neutrophils % 58.2 Lymphocytes % 22.9 Monocytes % 16.7 H Eosinophils % 1.2 Basophils % 0.6 Nucleated Red Blood Cells % 0.6 H Immature Granulocytes # 0.020 Neutrophils # 2.9 Lymphocytes # 1.2 Monocytes # 0.8 Eosinophils # 0.1 Basophils # 0.0 Nucleated Red Blood Cells # 0.0 Magnesium Level 1.6 L Medications Medication Current Medications IV Flush (NS 3 ml) 3 ml PER PROTOCOL IV ; Start 01/07/19 at 12:30 Ondansetron HCl (Zofran Inj) 4 mg Q6H PRN IV NAUSEA/VOMITING; Start 01/07/19 at 12:30 Acetaminophen (Tylenol Supp) 650 mg Q6H PRN [place] .PAIN 1-3 OR TEMP; Start 01/07/19 at 12:30 Multivitamins 10 ml/Thiamine HCl 100 mg/Folic Acid 1 mg/Sodium Chloride 1,011.2 ml @ 125 mls/ hr DAILY@09 IVPB Last administered on 01/10/19at 08:26; Admin Dose 125 MLS/HR; Start 01/07/19 at 14:00 Sucralfate (Carafate Susp) 1 gm QID PO Last administered on 01/10/19at 08:26; Admin Dose 1 GM; Start 01/07/19 at 17:00 Pantoprazole (Protonix Iv) 40 mg BID@06,18 IV Last administered on 01/10/19at 06:21; Admin Dose 40 MG; Start 01/08/19 at 18:00; Stop 01/10/19 at 23:00 Ferric Sodium Gluconate Complex 125 mg/Sodium Chloride 100 ml @ 100 mls/hr DAILY@1300 IVPB Last administered on 01/09/19at 14:11; Admin Dose 100 MLS/HR; Start 01/08/19 at 13:00; Stop 01/10/19 at 13:59 Chlordiazepoxide (Librium) 25 mg TID PO Last administered on 01/10/19 08:26; Admin Dose 25 MG; Start 01/08/19 at 13:00 Clarithromycin (Biaxin) 500 mg BID PO Last administered on 01/10/19 08:26; Admin Dose 500 MG; Start 01/08/19 at 21:00 Amoxicillin (Amoxicillin) 1,000 mg BID PO Last administered on 01/10/19 08:26; Admin Dose 1,000 MG; Start 01/09/19 at 09:00 Escitalopram Oxalate (Lexapro) 5 mg DAILY PO Last administered on 01/10/19 08:26; Admin Dose 5 MG; Start 01/09/19 at 11:00 Lorazepam (Ativan) 1 mg Q4H PRN IV AGITATION; Start 01/09/19 at 13:00 Magnesium Sulfate 100 ml @ 25 mls/hr ONCE ONCE IVPB ; Start 01/10/19 at 10:30; Stop 01/10/19 at 14:29 Potassium Chloride 100 ml @ 50 mls/hr Q2H IVPB ; Start 01/10/19 at 10:00; Stop 01/10/19 at 13:59 ANAND VALDES MD Jan 10, 2019 09:47
[2019-01-10] MEDS ORDERED: MAGNESIUM SULFATE 4 GM/100 ML 100 ML IVPB ONE (10:30)
[2019-01-10] MEDS: POTASSIUM CHLORIDE 100 ML IVPB SCH ×2 (10:57→14:17)
[2019-01-10] MEDS: SOD FERRIC GLUC COMPLX 125 MG in SOD CHLORIDE 0.9% 100 ML IVPB SCH (12:41)
[2019-01-10] MEDS: BISMUTH SUBSALICYLATE 240 ML BTL PO SCH ×4 (12:44→21:35)
[2019-01-10 14:00] VITALS: BP 114/71; PULSE 91; RESP 16
[2019-01-10] MEDS: FERROUS FUMARATE (SR) TAB PO SCH (17:12)
--- NOTE | 2019-01-10 18:14 | NUR ---
END OF SHIFT SUMMARY Pt alert and oriented x2. All due meds given as ordered. No acute distress noted. IV meds given as ordered. New IV placed. Pt is a fall risk, bed alarm on. Pt has to be reoriented to place and situation. Will continue to monitor pt and endorse new plan of care to oncoming shift.
[2019-01-10 19:22] VITALS: BP 134/79; PULSE 85; RESP 18
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
[2019-01-11] MEDS: PANTOPRAZOLE (EC) 40 MG TAB PO SCH ×2 (06:52→17:07)
[2019-01-11 07:32] VITALS: BP 119/82; PULSE 80; RESP 19
[2019-01-11] MEDS: MULTIVITAMINS 10 ML, THIAMINE 100 MG, FOLIC ACID 1 MG in SOD CHLORIDE 0.9% 1,000 ML IVPB SCH (08:34)
[2019-01-11] MEDS: SUCRALFATE (100 MG/ML) 10ML CUP PO SCH ×4 (08:35→20:52)
[2019-01-11] MEDS: ESCITALOPRAM 10 MG TAB PO SCH (08:35)
[2019-01-11] MEDS: CHLORDIAZEPOXIDE 25 MG CAP PO SCH (08:35)
[2019-01-11] MEDS: AMOXICILLIN 500 MG CAP PO SCH ×2 (08:36→20:52)
[2019-01-11] MEDS: FERROUS FUMARATE (SR) TAB PO SCH (08:36)
[2019-01-11] MEDS: CLARITHROMYCIN 500 MG TAB PO SCH ×2 (08:36→20:52)
[2019-01-11] MEDS: BISMUTH SUBSALICYLATE 240 ML BTL PO SCH ×4 (09:23→20:52)
--- NOTE | 2019-01-11 12:25 | PN ---
Date/Time of Note Date/Time of Note DATE: 01/11/19 TIME: 12:22 Assessment/Plan VTE Prophylaxis [place] [facility] [place] risk: 2 SCD applied ([place] [facility] [place] No SCD contraindicated: low risk/ambulating Pharmacological prophylaxis: NA/contraindicated Pharm contraindication: bleeding (Major upper GI bleed) Lines/Catheters IV Catheter Type (from [facility]): Peripheral IV Urinary Cath still in place: No Assessment/Plan Problems: (1) GI bleed Status: Acute Comment: Holding steady. Please note he also has an iron deficiency anemia which would be consistent with chronic blood loss he would see with the H. pylori infection. He is in the midst of the treatment for that. To verify that he actually does take the full course of therapy placement into an extended care facility which would also benefit his ambulation would be a desirable objective. Qualifiers: GI bleed type/associated pathology: gastric ulcer Qualified Codes: K25.4 - Chronic or unspecified gastric ulcer with hemorrhage (2) Helicobacter pylori gastritis Status: Acute Comment: On appropriate antibiotic treatment. This is not a communicable disease (3) Hiatal hernia Status: Chronic Comment: Noted. On proton pump inhibitor therapy (4) Alcoholism /alcohol abuse Status: Chronic Comment: No evidence of withdrawal or DTs. (5) Alcoholic intoxication Status: Resolved Comment: Resolved Qualifiers: Complication of substance-induced condition: uncomplicated Qualified Codes: F10.920 - Alcohol use, unspecified with intoxication, uncomplicated (6) Essential hypertension Status: Chronic Comment: Adequate control. Result Diagram: 01/11/19 0659 01/11/19 0659 Results 24hrs Laboratory Tests Test 01/10/19 13:05 01/11/19 06:59 Urine Color YELLOW Urine Clarity CLEAR Urine pH 8.0 Urine Specific [place] 1.012 Urine Ketones NEGATIVE Urine Nitrite NEGATIVE Urine Bilirubin NEGATIVE Urine Urobilinogen NEGATIVE Urine Leukocyte Esterase NEGATIVE Urine Hemoglobin NEGATIVE Urine Glucose NEGATIVE Urine Total Protein NEGATIVE White Blood Count 5.1 Red Blood Count 3.52 L Hemoglobin 11.0 L Hematocrit 32.8 L Mean Corpuscular Volume 93.2 Mean Corpuscular Hemoglobin 31.3 Mean Corpuscular Hemoglobin Concent 33.5 Red Cell Distribution Width 18.6 H Platelet Count 206 Mean Platelet Volume 10.3 Immature Granulocytes % 0.600 H Neutrophils % 54.6 Lymphocytes % 23.8 Monocytes % 18.6 H Eosinophils % 1.6 Basophils % 0.8 Nucleated Red Blood Cells % 0.0 Immature Granulocytes # 0.030 Neutrophils # 2.8 Lymphocytes # 1.2 Monocytes # 1.0 H Eosinophils # 0.1 Basophils # 0.0 Nucleated Red Blood Cells # 0.0 Sodium Level 138 Potassium Level 4.1 Chloride Level 102 Carbon Dioxide Level 31 Anion Gap 5 Blood Urea Nitrogen 4 L Creatinine 0.52 L Est Glomerular Filtrat Rate mL/min > 60 Glucose Level 100 Calcium Level 9.2 Magnesium Level 1.8 Subjective 24 Hr Interval Summary Free Text/Dictation Patient opens his eyes but does not respond to questions in either Marshallese or in Portuguese Exam/Review of Systems Exam Vitals Vital Signs Date Temp Pulse Resp B/P (MAP) Pulse Ox O2 O2 Flow FiO2 Time Delivery Rate 01/11/19 97.4 80 19 119/82 99 07:32 (94) 01/10/19 Room Air 14:00 01/07/19 10.0 15:54 Intake and Output 01/10/19 01/10/19 01/11/19 1515:00 23:00 07:00 IntakeIntake Total 200 ml 1000 ml 1011.2 ml BalanceBalance 200 ml 1000 ml 1011.2 ml Constitutional: alert, non-verbal Neck: supple, non-tender Respiratory: clear to auscultation, normal air movement Cardiovascular: regular rate and rhythm, nl pulses Gastrointestinal: soft, nl liver, spleen, non-tender Results Results 24hrs Laboratory Tests Test 01/10/19 13:05 01/11/19 06:59 Urine Color YELLOW Urine Clarity CLEAR Urine pH 8.0 Urine Specific [place] 1.012 Urine Ketones NEGATIVE Urine Nitrite NEGATIVE Urine Bilirubin NEGATIVE Urine Urobilinogen NEGATIVE Urine Leukocyte Esterase NEGATIVE Urine Hemoglobin NEGATIVE Urine Glucose NEGATIVE Urine Total Protein NEGATIVE White Blood Count 5.1 Red Blood Count 3.52 L Hemoglobin 11.0 L Hematocrit 32.8 L Mean Corpuscular Volume 93.2 Mean Corpuscular Hemoglobin 31.3 Mean Corpuscular Hemoglobin Concent 33.5 Red Cell Distribution Width 18.6 H Platelet Count 206 Mean Platelet Volume 10.3 Immature Granulocytes % 0.600 H Neutrophils % 54.6 Lymphocytes % 23.8 Monocytes % 18.6 H Eosinophils % 1.6 Basophils % 0.8 Nucleated Red Blood Cells % 0.0 Immature Granulocytes # 0.030 Neutrophils # 2.8 Lymphocytes # 1.2 Monocytes # 1.0 H Eosinophils # 0.1 Basophils # 0.0 Nucleated Red Blood Cells # 0.0 Sodium Level 138 Potassium Level 4.1 Chloride Level 102 Carbon Dioxide Level 31 Anion Gap 5 Blood Urea Nitrogen 4 L Creatinine 0.52 L Est Glomerular Filtrat Rate mL/min > 60 Glucose Level 100 Calcium Level 9.2 Magnesium Level 1.8 Medications Medication Current Medications IV Flush (NS 3 ml) 3 ml PER PROTOCOL IV ; Start 01/07/19 at 12:30 Ondansetron HCl (Zofran Inj) 4 mg Q6H PRN IV NAUSEA/VOMITING; Start 01/07/19 at 12:30 Acetaminophen (Tylenol Supp) 650 mg Q6H PRN [place] .PAIN 1-3 OR TEMP; Start 01/07/19 at 12:30 Sucralfate (Carafate Susp) 1 gm QID PO Last administered on 01/11/19 08:35; Admin Dose 1 GM; Start 01/07/19 at 17:00 Clarithromycin (Biaxin) 500 mg BID PO Last administered on 01/11/19 08:36; Admin Dose 500 MG; Start 01/08/19 at 21:00; Stop 01/18/19 at 20:59 Amoxicillin (Amoxicillin) 1,000 mg BID PO Last administered on 01/11/19 08:36; Admin Dose 1,000 MG; Start 01/09/19 at 09:00; Stop 01/19/19 at 08:59 Lorazepam (Ativan) 1 mg Q4H PRN IV AGITATION; Start 01/09/19 at 13:00 Pantoprazole (Protonix Tab) 40 mg BID@18 PO Last administered on 01/11/19 06:52; Admin Dose 40 MG; Start 01/11/19 at 06:00; Stop 02/10/19 at 05:59 Bismuth Subsalicylate (Pepto-Bismol) 30 ml QID PO Last administered on 01/11/19 09:23; Admin Dose 30 ML; Start 01/10/19 at 10:30; Stop 01/20/19 at 10:29 Docusate Sodium/ Ferrous Fumarate (Gloria-Sequels) 1 tab DAILY PO Last administered on 01/11/19 08:36; Admin Dose 1 TAB; Start 01/10/19 at 16:00; Stop 02/09/19 at 15:59 Multivitamins Therapeutic (Theragran) 1 tab DAILY PO ; Start 01/12/19 at 09:00 Folic Acid (Folic Acid) 1 mg DAILY PO ; Start 01/12/19 at 09:00 Thiamine HCl (Vitamin B1) 100 mg DAILY PO ; Start 01/12/19 at 09:00 Escitalopram Oxalate (Lexapro) 10 mg DAILY PO ; Start 01/12/19 at 09:00; Status ANAND WONG MD Jan 11, 2019 12:25
--- NOTE | 2019-01-11 13:46 | PN ---
Date/Time of Note Date/Time of Note DATE: 01/11/19 TIME: 13:45 Assessment/Plan VTE Prophylaxis Risk score (from Nsg)>0 risk: 2 SCD applied (from Ns): No SCD contraindicated: low risk/ambulating Pharmacological prophylaxis: heparin Lines/Catheters IV [facility] (from [facility]): Peripheral IV Urinary Cath still in place: No Assessment/Plan Assessment/Plan Assessment: GI bleeding/hematemesis/coffee-ground emesis. EGD 01/07/19 Hiatal hernia Fady ulcer Esophagitis/gastritis BX:Gastric body, antrum biopsy: Chronic gastritis, moderate to severe, involving antral mucosa. Numerous bacteria compatible with Helicobacter pylori are identified in a Giemsa stain (positive control concurrently reviewed). -- There is no evidence of intestinal metaplasia, dysplasia or malignancy. H. pylori gastritis History of alcohol abuse. Probable alcoholic liver disease. Confusional state/encephalopathy Homelessness Plan: PPI bid, Carafate QID [id number] Amoxicillin 500 mg si caps p.o. twice daily times x 14 days, Clarithromycin 500 mg si tab p.o. twice daily times x 14 days, cont PPI BID Follow-up with GI as an outpatient to repeat UBT 6 weeks after treatment is completed. Monitor H&H and transfuse as necessary. Patient seen in collaboration with Dr. Bee/Tamela Subjective: Course reviewed with nursing staff Patient interviewed and examined All labs, imaging and other results reviewed The patient is sitting in bed. Denies abdominal pain, nausea or vomiting. Tolerating diet well. We will continue treatment of H. pylori gastritis. From GI standpoint patient is adequate for outpatient management.. PHYSICAL EXAMINATION: GENERAL: Well developed, well nourished, somewhat confused in no acute distress SKIN: No lesions NECK: Supple, no masses, CHEST: Inspection within normal limits. CARDIOVASCULAR: Heart: Regular rate and rhythm, RESPIRATORY: Lungs clear to auscultation GASTROINTESTINAL AND LIVER: Abdomen: Soft, no tenderness, non-distended, no hernias, no masses, no organomegaly, no ascites, no guarding, no rebound tenderness, normoactive bowel sounds. Rectal: Deferred. EXTREMITIES: No cyanosis, clubbing or edema. Result Diagram: 01/11/19 0659 01/11/19 0659 Results 24hrs Laboratory Tests Test 01/11/19 06:59 White Blood Count 5.1 Red Blood Count 3.52 L Hemoglobin 11.0 L Hematocrit 32.8 L Mean Corpuscular Volume 93.2 Mean Corpuscular Hemoglobin 31.3 Mean Corpuscular Hemoglobin Concent 33.5 Red Cell Distribution Width 18.6 H Platelet Count 206 Mean Platelet Volume 10.3 Immature Granulocytes % 0.600 H Neutrophils % 54.6 Lymphocytes % 23.8 Monocytes % 18.6 H Eosinophils % 1.6 Basophils % 0.8 Nucleated Red Blood Cells % 0.0 Immature Granulocytes # 0.030 Neutrophils # 2.8 Lymphocytes # 1.2 Monocytes # 1.0 H Eosinophils # 0.1 Basophils # 0.0 Nucleated Red Blood Cells # 0.0 Sodium Level 138 Potassium Level 4.1 Chloride Level 102 Carbon Dioxide Level 31 Anion Gap 5 Blood Urea Nitrogen 4 L Creatinine 0.52 L Est Glomerular Filtrat Rate mL/min > 60 Glucose Level 100 Calcium Level 9.2 Magnesium Level 1.8 CC: CLARIBEL BEE MD ; Exam/Review of Systems Exam Vitals Vital Signs Date Temp Pulse Resp B/P (MAP) Pulse Ox O2 O2 Flow FiO2 Time Delivery Rate 01/11/19 97.4 80 19 119/82 99 07:32 (94) 01/10/19 Room Air 14:00 01/07/19 10.0 15:54 Intake and Output 01/10/19 01/10/19 01/11/19 1515:00 23:00 07:00 IntakeIntake Total 200 ml 1000 ml 1011.2 ml BalanceBalance 200 ml 1000 ml 1011.2 ml Results Results 24hrs Laboratory Tests Test 01/11/19 06:59 White Blood Count 5.1 Red Blood Count 3.52 L Hemoglobin 11.0 L Hematocrit 32.8 L Mean Corpuscular Volume 93.2 Mean Corpuscular Hemoglobin 31.3 Mean Corpuscular Hemoglobin Concent 33.5 Red Cell Distribution Width 18.6 H Platelet Count 206 Mean Platelet Volume 10.3 Immature Granulocytes % 0.600 H Neutrophils % 54.6 Lymphocytes % 23.8 Monocytes % 18.6 H Eosinophils % 1.6 Basophils % 0.8 Nucleated Red Blood Cells % 0.0 Immature Granulocytes # 0.030 Neutrophils # 2.8 Lymphocytes # 1.2 Monocytes # 1.0 H Eosinophils # 0.1 Basophils # 0.0 Nucleated Red Blood Cells # 0.0 Sodium Level 138 Potassium Level 4.1 Chloride Level 102 Carbon Dioxide Level 31 Anion Gap 5 Blood Urea Nitrogen 4 L Creatinine 0.52 L Est Glomerular Filtrat Rate mL/min > 60 Glucose Level 100 Calcium Level 9.2 Magnesium Level 1.8 Medications Medication Current Medications IV Flush (NS 3 ml) 3 ml PER PROTOCOL IV ; Start 01/07/19 at 12:30 Ondansetron HCl (Zofran Inj) 4 mg Q6H PRN IV NAUSEA/VOMITING; Start 01/07/19 at 12:30 Acetaminophen (Tylenol Supp) 650 mg Q6H PRN [place] .PAIN 1-3 OR TEMP; Start 01/07/19 at 12:30 Sucralfate (Carafate Susp) 1 gm QID PO Last administered on 01/11/19at 12:25; A dmin Dose 1 GM; Start 01/07/19 at 17:00 Clarithromycin (Biaxin) 500 mg BID PO Last administered on 01/11/19at 08:36; Admin Dose 500 MG; Start 01/08/19 at 21:00; Stop 01/18/19 at 20:59 Amoxicillin (Amoxicillin) 1,000 mg BID PO Last administered on 01/11/19 08:36; Admin Dose 1,000 MG; Start 01/09/19 at 09:00; Stop 01/19/19 at 08:59 Lorazepam (Ativan) 1 mg Q4H PRN IV AGITATION; Start 01/09/19 at 13:00 Pantoprazole (Protonix Tab) 40 mg BID@06,18 PO Last administered on 01/11/19at 06:52; Admin Dose 40 MG; Start 01/11/19 at 06:00; Stop 02/10/19 at 05:59 Bismuth Subsalicylate (Pepto-Bismol) 30 ml QID PO Last administered on 01/11/19 12:25; Admin Dose 30 ML; Start 01/10/19 at 10:30; Stop 01/20/19 at 10:29 Docusate Sodium/ Ferrous Fumarate (Gloria-Sequels) 1 tab DAILY PO Last administered on 01/11/19 08:36; Admin Dose 1 TAB; Start 01/10/19 at 16:00; Stop 02/09/19 at 15:59 Multivitamins Therapeutic (Theragran) 1 tab DAILY PO ; Start 01/12/19 at 09:00 Folic Acid (Folic Acid) 1 mg DAILY PO ; Start 01/12/19 at 09:00 Thiamine HCl (Vitamin B1) 100 mg DAILY PO ; Start 01/12/19 at 09:00 Escitalopram Oxalate (Lexapro) 10 mg DAILY PO ; Start 01/12/19 at 09:00 SAILAJA BELLAMY NP Jan 11, 2019 13:46
[2019-01-11 14:05] VITALS: BP 94/63; PULSE 77; RESP 18
--- NOTE | 2019-01-11 15:49 | NUR ---
aox3, pt will have a physical therapy eval in order to establish d/c plan, denies pain at this time, declined shower today
[2019-01-11 19:23] VITALS: BP 122/78; PULSE 74; RESP 18
[2019-01-12 01:52] VITALS: BP 107/65; PULSE 74; RESP 18
--- NOTE | 2019-01-12 05:50 | NUR ---
EOSS: Pt. rested comfortably overnight. Pt. did not try to get out of bed. No acute changes. Due meds given. All safety measures are in place, pt. free from injury. Will endorse care to oncoming nurse
[2019-01-12] MEDS: PANTOPRAZOLE (EC) 40 MG TAB PO SCH ×2 (06:23→17:49)
[2019-01-12 07:44] VITALS: BP 115/71; PULSE 76; RESP 17
[2019-01-12] MEDS: FERROUS FUMARATE (SR) TAB PO SCH (09:27)
[2019-01-12] MEDS: MULTIVITAMINS THERAPEUTIC TAB PO SCH (09:27)
[2019-01-12] MEDS: ESCITALOPRAM 10 MG TAB PO SCH (09:27)
[2019-01-12] MEDS: AMOXICILLIN 500 MG CAP PO SCH ×2 (09:27→20:30)
[2019-01-12] MEDS: CLARITHROMYCIN 500 MG TAB PO SCH ×2 (09:27→20:30)
[2019-01-12] MEDS: SUCRALFATE (100 MG/ML) 10ML CUP PO SCH ×4 (09:28→20:30)
[2019-01-12] MEDS: FOLIC ACID 1 MG TAB PO SCH (09:28)
[2019-01-12] MEDS: THIAMINE 100 MG TAB PO SCH (09:28)
[2019-01-12] MEDS: BISMUTH SUBSALICYLATE 240 ML BTL PO SCH ×4 (09:30→20:30)
--- NOTE | 2019-01-12 11:20 | NUR ---
PT [facility] Patient: Doyle Person : 1955 Age/Sex: 63/M Unit#: [id number] Room/Bed: 5567/A User: Stevie Hutchison PT Date: 01/12/19 10:24 Type: PT Technical Record Therapy day number 1 Evaluation Start Time 10:24 Evaluation Total Time 0 min Subjective Current complaint of pain Pain Scale NUMERIC Pain Intensity 3 (0-10) Patient Stated Goal for Pain Relief 0 (0-10) Pain Level Comment plantar surface of foot Pre Treatment Vital Signs Stable Yes Exercise Assessment Label Bilat Lower Extremity Exercise Type Active ROM Additional Exercise Comments supine APs, heel slides, SLR Supine to Sit Stand by Assist Transfer Sit to Stand Ability Moderate Assist Bed Mobility Sit to Supine Stand by Assist Bed Transfer Ability Moderate Assist Chair Transfer Ability Moderate Assist Sitting Tolerance 15 min Additional Mobility Comments scooting up in bed with SBA Patient uses wheelchair Not Applicable Gait Assist Levels Minimum Assist Assistive Devices Front Wheel Walker Ambulation Distance 45 feet Additional Gait Comments slow yuni, decreased step length B, B shoulder elevation, Martina for stead Weight Bearing Assessment Label Bilat Lower Extremity Weight Bearing Status Full Weight Bearing Additional Stairs Assist Comments NA Static Sitting Balance Fair plus Dynamic Sitting Balance Fair Standing Static Balance Fair Dynamic Standing Balance Fair Additional Balance Assessments Comments FWW Safety Judgement Fair Activity Tolerance Fair Post Treatment Pain Intensity 0 0-10 Variance Documentation SEE PT EVAL PT Technical Record Comment PT WESLEY Pt is a 63 yo homeless M with PMH of alcoholism who was brought in my paramedics with intoxication, coffee-ground emesis, suspected upper GI bleed. Pt underwent EGD on 01/07/19. Biopsy results showed H. pylori gastritis. Pt received in 5E. PLOF: Per EMR, pt is homeless. Pt reports using SPC for ambulation prior to admission. CLOF: SKYLER Hart cleared pt for PT evaluation. 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 ROM assessment WFL, strength assessment noted mild weakness grossly. Bed mobility, transfer and gait assessment as above, pt amb ~45' with FWW. Pt reported fatigue and requested to return to bed, returned to bed all needs in reach, bed alarm on. RN notified of pt's status Recommendation: Pt presents with generalized weakness, requiring modA for transfer tasks due to B LE weakness and ambulates with very slow yuni and decreased step length B, requiring FWW and Martina for balance. Pt will benefit from additional skilled PT during LOS to further address impairments and maximize independence prior to d/c. D/c recommendation per social work recommendation, though pt may benefit from post-acute setting (SNF) placement once cleared by MD for further therapies, given weakness and balance impairments. Pt would benefit from FWW. P: Continue c PT POC
--- NOTE | 2019-01-12 13:05 | PN ---
Date/Time of Note Date/Time of Note DATE: 01/12/19 TIME: 13:02 Assessment/Plan VTE Prophylaxis Risk score (from Ns)>0 risk: 2 SCD applied (from Ns): No SCD contraindicated: other (see nsg notes) Pharmacological prophylaxis: NA/contraindicated Pharm contraindication: low risk/ambulating, anticoag not tolerated Lines/Catheters IV C[facility]ter Type (from [facility]): Peripheral IV Urinary Cath still in place: No Assessment/Plan Hospital Course SUBJECTIVE: No acute overnight episodes. OBJECTIVE: Vital signs-see below PHYSICAL EXAM: Constitutional: Disheveled male, lying in bed comfortably. Psych: nl mood/affect, no complaints Head: atraumatic, normocephalic Eyes: nl conjunctiva, nl sclera ENMT: mucosa pink and moist, nl external ears & nose Neck: non-tender, supple Respiratory: clear to auscultation, normal air movement Cardiovascular: nl pulses, regular rate and rhythm Gastrointestinal: non-tender, soft, bowel sounds active in all 4 quadrants. Musculoskeletal/extremities: nl extremities to inspection, motor strength equal bilaterally, no focal deficit. Normal pulses,no cyanosis, no edema. Neurological: Alert oriented x3. nl strength Skin: nl turgor ASSESSMENT/PLAN: 63-year-old homeless male who is also a poor historian with alcoholism, brought in by paramedics after found on the street intoxicated, having coffee-ground emesis. 1. Hematemesis/Upper GIB. -EGD with moderate to severe gastritis/Fady ulcer/esophagitis/gastritis. -Continue PPI/Carafate -Stable 2. H. pylori gastritis -On appropriate agents. -Recommend follow-up in 6 weeks. 3. Acute blood loss anemia requiring multiple transfusion Secondary to GI bleed. -Now stable. -Continue iron supplementation. 4. EtOH abuse/intoxication -Now stable. cont. oral thiamine supplementation. -Cessation advised. -attraction worker to assist with rehabilitation program if patient is interested. 5. Encephalopathy, likely toxic metabolic 2/2 alcoholism -Resolved. -Supportive care 6. Homelessness -attraction worker assistance. 7. Depressive disorders. - on Lexapro. DVT prophylaxis: SCDs PUD prophylaxis: Protonix Disposition: Overall, patient with clinical improvement. Stable for discharge planning to inpatient alcohol rehab center. attraction worker and case management to facilitate transfer. Patient was seen in collaboration with . Result Diagram: [birth year] Exam/Review of Systems Exam Vitals Vital Signs Date Temp Pulse Resp B/P (MAP) Pulse Ox O2 O2 Flow FiO2 Time Delivery Rate 01/12/19 98.2 76 17 115/71 97 07:44 (86) 01/10/19 Room Air 14:00 Intake and Output 01/11/19 01/11/19 01/12/19 1515:00 23:00 07:00 IntakeIntake Total 880 ml 1431.2 ml OutputOutput Total 100 ml 100 ml BalanceBalance 780 ml 1431.2 ml -100 ml Medications Medication Current Medications IV Flush (NS 3 ml) 3 ml PER PROTOCOL IV ; Start 01/07/19 at 12:30 Ondansetron HCl (Zofran Inj) 4 mg Q6H PRN IV NAUSEA/VOMITING; Start 01/07/19 at 12:30 Acetaminophen (Tylenol Supp) 650 mg Q6H PRN [place] .PAIN 1-3 OR TEMP; Start 01/07/19 at 12:30 Sucralfate (Carafate Susp) 1 gm QID PO Last administered on 01/12/19at 09:28; Admin Dose 1 GM; Start 01/07/19 at 17:00 Clarithromycin (Biaxin) 500 mg BID PO Last administered on 01/12/19at 09:27; Admin Dose 500 MG; Start 01/08/19 at 21:00; Stop 01/18/19 at 20:59 Amoxicillin (Amoxicillin) 1,000 mg BID PO Last administered on 01/12/19at 09:27; Admin Dose 1,000 MG; Start 01/09/19 at 09:00; Stop 01/19/19 at 08:59 Lorazepam (Ativan) 1 mg Q4H PRN IV AGITATION; Start 01/09/19 at 13:00 Pantoprazole (Protonix Tab) 40 mg BID@18 PO Last administered on 01/12/19at 06:23; Admin Dose 40 MG; Start 01/11/19 at 06:00; Stop 02/10/19 at 05:59 Bismuth Subsalicylate (Pepto-Bismol) 30 ml QID PO Last administered on 01/12/19at 09:30; Admin Dose 30 ML; Start 01/10/19 at 10:30; Stop 01/20/19 at 10:29 Docusate Sodium/ Ferrous Fumarate (Gloria-Sequels) 1 tab DAILY PO Last administered on 01/12/19 09:27; Admin Dose 1 TAB; Start 01/10/19 at 16:00; Stop 02/09/19 at 15:59 Multivitamins Therapeutic (Theragran) 1 tab DAILY PO Last administered on 01/12/19 09:27; Admin Dose 1 TAB; Start 01/12/19 at 09:00 Folic Acid (Folic Acid) 1 mg DAILY PO Last administered on 01/12/19 09:28; Admin Dose 1 MG; Start 01/12/19 at 09:00 Thiamine HCl (Vitamin B1) 100 mg DAILY PO Last administered on 01/12/19 09:28; Admin Dose 100 MG; Start 01/12/19 at 09:00 Escitalopram Oxalate (Lexapro) 10 mg DAILY PO Last administered on 01/12/19 09:27; Admin Dose 10 MG; Start 01/12/19 at 09:00 CHINO AGUILAR NP Jan 12, 2019 13:05
--- NOTE | 2019-01-12 14:17 | PN ---
Date/Time of Note Date/Time of Note DATE: 01/12/19 TIME: 14:14 Assessment/Plan VTE Prophylaxis Risk score (from Ns)>0 risk: 2 SCD applied (from Ns): No SCD contraindicated: other (scds) Pharmacological prophylaxis: other (scds) Lines/Catheters IV Catheter Type (from [facility]): Peripheral IV Urinary Cath still in place: No Assessment/Plan Hospital Course Assessment: GI bleeding/hematemesis/coffee-ground emesis. EGD 01/07/19 Hiatal hernia Fady ulcer Esophagitis/gastritis BX:Gastric body, antrum biopsy: Chronic gastritis, moderate to severe, involving antral mucosa. Numerous bacteria compatible with Helicobacter pylori are identified in a Giemsa stain (positive control concurrently reviewed). -- There is no evidence of intestinal metaplasia, dysplasia or malignancy. H. pylori gastritis- currently under treatment History of alcohol abuse. Probable alcoholic liver disease. Confusional state/encephalopathy Homelessness Plan: PPI bid, Carafate QID [id number] Amoxicillin 500 mg si caps p.o. twice daily times x 14 days, Clarithromycin 500 mg si tab p.o. twice daily times x 14 days, cont PPI BID Follow-up with GI as an outpatient to repeat UBT 6 weeks after treatment is completed. Monitor H&H and transfuse as necessary. D/c planning pending- pt appears stable for out-pt management Patient seen in collaboration with Dr. Bee/Tamela Subjective: Course reviewed with nursing staff Patient interviewed and examined All labs, imaging and other results reviewed No over night events, Pt tolerating diet well No c/o n.v or abd pain. Continues H.pylori treatment as rx- pt will need a f/u UBT 6 weeks after treatment has been completed to assure H.pylori bacteria has been eradicated. Patient appears stable for out-pt management. PHYSICAL EXAMINATION: GENERAL: Well developed, well nourished, somewhat confused in no acute distress SKIN: No lesions NECK: Supple, no masses, CHEST: Inspection within normal limits. CARDIOVASCULAR: Heart: Regular rate and rhythm, RESPIRATORY: Lungs clear to auscultation GASTROINTESTINAL AND LIVER: Abdomen: Soft, no tenderness, non-distended, no hernias, no masses, no organomegaly, no ascites, no guarding, no rebound tenderness, normoactive bowel sounds. Rectal: Deferred. Result Diagram: 01/11/1957 01/11/1957 Exam/Review of Systems Exam Vitals Vital Signs Date Temp Pulse Resp B/P (MAP) Pulse Ox O2 O2 Flow FiO2 Time Delivery Rate 01/12/19 98.2 76 17 115/71 97 07:44 (86) 01/10/19 Room Air 14:00 Intake and Output 01/11/19 01/11/19 01/12/19 1515:00 23:00 07:00 IntakeIntake Total 880 ml 1431.2 ml OutputOutput Total 100 ml 100 ml BalanceBalance 780 ml 1431.2 ml -100 ml Medications Medication Current Medications IV Flush (NS 3 ml) 3 ml PER PROTOCOL IV ; Start 01/07/19 at 12:30 Ondansetron HCl (Zofran Inj) 4 mg Q6H PRN IV NAUSEA/VOMITING; Start 01/07/19 at 12:30 Acetaminophen (Tylenol Supp) 650 mg Q6H PRN [place] .PAIN 1-3 OR TEMP; Start 01/07/19 at 12:30 Sucralfate (Carafate Susp) 1 gm QID PO Last administered on 01/12/19at 13:17; Admin Dose 1 GM; Start 01/07/19 at 17:00 Clarithromycin (Biaxin) 500 mg BID PO Last administered on 01/12/19at 09:27; Admin Dose 500 MG; Start 01/08/19 at 21:00; Stop 01/18/19 at 20:59 Amoxicillin (Amoxicillin) 1,000 mg BID PO Last administered on 01/12/19at 09:27; Admin Dose 1,000 MG; Start 01/09/19 at 09:00; Stop 01/19/19 at 08:59 Pantoprazole (Protonix Tab) 40 mg BID@,18 PO Last administered on 01/12/19at 06:23; Admin Dose 40 MG; Start 01/11/19 at 06:00; Stop 02/10/19 at 05:59 Bismuth Subsalicylate (Pepto-Bismol) 30 ml QID PO Last administered on 01/12/19at 13:18; Admin Dose 30 ML; Start 01/10/19 at 10:30; Stop 01/20/19 at 10:29 Docusate Sodium/ Ferrous Fumarate (Gloria-Sequels) 1 tab DAILY PO Last administered on 01/12/19 09:27; Admin Dose 1 TAB; Start 01/10/19 at 16:00; Stop 02/09/19 at 15:59 Multivitamins Therapeutic (Theragran) 1 tab DAILY PO Last administered on 01/12/19 09:27; Admin Dose 1 TAB; Start 01/12/19 at 09:00 Folic Acid (Folic Acid) 1 mg DAILY PO Last administered on 01/12/19 09:28; Admin Dose 1 MG; Start 01/12/19 at 09:00 Thiamine HCl (Vitamin B1) 100 mg DAILY PO Last administered on 01/12/19 09:28; Admin Dose 100 MG; Start 01/12/19 at 09:00 Escitalopram Oxalate (Lexapro) 10 mg DAILY PO Last administered on 01/12/19 09:27; Admin Dose 10 MG; Start 01/12/19 at 09:00 RENETTA OHARA Jan 12, 2019 14:17
[2019-01-12 14:27] VITALS: BP 85/54; PULSE 85; RESP 18
[2019-01-12 15:29] VITALS: BP 92/56; PULSE 78
--- NOTE | 2019-01-12 15:58 | NUR ---
GERARD NOTES: ASSIGNED TO THIS CM TODAY. PT IS A 63 YEARS OLD MALE WITH ADMITTING DX OF GI BLEED AND PRIOR TO THE ADMISSION, PT WAS HOMELESS. S/P PHYSICAL THERAPY EVALUATION AND TXT WAS DONE TODAY AND PHYSICAL THERAPY EVALUATION RECOMMENDED SNF PLACEMENT. PT HAS [facility] ONLY AND IS HOMELESS. CURRENTLY PT IS AMBULATING WITH 45 FT WITH FWW MIN ASSISTANCE. LANA LIGHTEL WAS INFORMED ABOUT THE FINDING. CM WILL NEED TO SEARCH FOR A SNF PLACEMENT BUT PT HAS [facility] ONLY AND HOMELESS. FINDING A SNF PLACEMENT FOR THE PT WILL BE COMPLEX AND DIFFICULT. CM WILL TRY TO LOOK FOR A SNF PLACEMENT. IRAJ CAREY CM [id number] Addendum: 01/12/19 at 1602 by IRAJ HOPPER CM Amended: Links added.
--- NOTE | 2019-01-12 18:57 | NUR ---
End of shift summary: Patient in stable condition .V.S within normal limits .No s/s of any acute distress. Patient ambulated with PT today with a walker .See PT evaluation notes .Full report will be given to next shift RN .Call light within reach ,bed alarm on .
[2019-01-12 19:34] VITALS: BP 107/65; PULSE 81; RESP 18
[2019-01-13 02:31] VITALS: BP 111/61; PULSE 74; RESP 18
[2019-01-13] MEDS: PANTOPRAZOLE (EC) 40 MG TAB PO SCH ×2 (05:32→17:06)
--- NOTE | 2019-01-13 06:23 | NUR ---
EOSS: Pt. kept comfortable overnight. No acute changes. Due meds given. All needs met. All safety measures in place. Pt. free from injury. Will endorse care to oncoming nurse.
[2019-01-13 08:00] VITALS: BP 112/72; PULSE 77; RESP 18
[2019-01-13] MEDS: ESCITALOPRAM 10 MG TAB PO SCH (08:32)
[2019-01-13] MEDS: SUCRALFATE (100 MG/ML) 10ML CUP PO SCH ×4 (08:32→20:22)
[2019-01-13] MEDS: THIAMINE 100 MG TAB PO SCH (08:32)
[2019-01-13] MEDS: FERROUS FUMARATE (SR) TAB PO SCH (08:32)
[2019-01-13] MEDS: FOLIC ACID 1 MG TAB PO SCH (08:32)
[2019-01-13] MEDS: MULTIVITAMINS THERAPEUTIC TAB PO SCH (08:32)
[2019-01-13] MEDS: BISMUTH SUBSALICYLATE 240 ML BTL PO SCH ×4 (08:32→20:25)
[2019-01-13] MEDS: CLARITHROMYCIN 500 MG TAB PO SCH ×2 (08:33→20:22)
[2019-01-13] MEDS: AMOXICILLIN 500 MG CAP PO SCH ×2 (08:33→20:22)
--- NOTE | 2019-01-13 13:18 | NUR ---
SS NOTE: F/U SW F/U REGARDING POSSIBLE PLAN TO SEND PT TO ALCOHOL REHAB AT [facility]. LEROY CALLED AND SPOKE WITH CAIO AT [facility] AND SHE WILL BE REVIEWING THE PT MEDICAL INFORMATION FOR POSSIBLE PLACEMENT ON WAITING LIST. PT WILL NEED TO BE CLEARED BY PHYSICAL THERAPY BEFORE D/C. LEROY AWAITS CALL BACK FROM [facility]. LEROY REMAINS AVAILABLE FOR F/U NEEDED.
--- NOTE | 2019-01-13 13:49 | NUR ---
GERARD Notes: Called several agencies that could service the patient. Nobody wants to take straight Medical patient and also it is very far for them to go to the [facility]. Will continue to look for a HH agency. Addendum: 01/13/19 at 1540 by TARAS GHOTRA RN, CM T/c made to [facility] spoke with Cole the rehab care assistant of [facility]: [phone] to discuss some options for the patient in order for him to go to that place. As per Cole one option is to find an Outpatient PT office that will do the PT in that area and they will be able to provide only the transportation. Today patient able to participate with PT and able to walk with a FWW 120 steps. Will continue to look for options to d/c this patient safely.
--- NOTE | 2019-01-13 13:51 | PN ---
Date/Time of Note Date/Time of Note DATE: 01/13/19 TIME: 13:49 Assessment/Plan VTE Prophylaxis Risk score (from Ns)>0 risk: 2 SCD applied (from Ns): Yes Pharmacological prophylaxis: NA/contraindicated Pharm contraindication: low risk/ambulating Lines/Catheters IV [facility]ter Type (from [facility]): Peripheral IV Urinary Cath still in place: No Assessment/Plan Hospital Course SUBJECTIVE: No acute overnight episodes. OBJECTIVE: Vital signs-see below PHYSICAL EXAM: Constitutional: Disheveled male, lying in bed comfortably. Psych: nl mood/affect, no complaints Head: atraumatic, normocephalic Eyes: nl conjunctiva, nl sclera ENMT: mucosa pink and moist, nl external ears & nose Neck: non-tender, supple Respiratory: clear to auscultation, normal air movement Cardiovascular: nl pulses, regular rate and rhythm Gastrointestinal: non-tender, soft, bowel sounds active in all 4 quadrants. Musculoskeletal/extremities: nl extremities to inspection, motor strength equal bilaterally, no focal deficit. Normal pulses,no cyanosis, no edema. Neurological: Alert oriented x3. nl strength Skin: nl turgor ASSESSMENT/PLAN: 63-year-old homeless male who is also a poor historian with alcoholism, brought in by paramedics after found on the street intoxicated, havi ng coffee-ground emesis. 1. Hematemesis/Upper GIB. -EGD with moderate to severe gastritis/Fady ulcer/esophagitis/gastritis. -Continue PPI/Carafate -Stable 2. H. pylori gastritis -On appropriate agents. -Recommend follow-up in 6 weeks. 3. Acute blood loss anemia requiring multiple transfusion Secondary to GI bleed. -Now stable. -Continue iron supplementation. 4. EtOH abuse/intoxication -Now stable. cont. oral thiamine supplementation. -Cessation advised. 5. Encephalopathy, likely toxic metabolic 2/2 alcoholism -Resolved. -Supportive care 6. Homelessness -wheel worker assistance. 7. Depressive disorders. - on Lexapro. DVT prophylaxis: SCDs PUD prophylaxis: Protonix Disposition: DC planning to fdc facility. Pending placement. Patient was seen in collaboration with . Result Diagram: 01/11/19 0659 01/13/19 0812 Results 24hrs Laboratory Tests Test 01/13/19 08:12 Sodium Level 138 Potassium Level 3.5 Chloride Level 102 Carbon Dioxide Level 30 Anion Gap 6 Blood Urea Nitrogen 7 Creatinine 0.58 L Est Glomerular Filtrat Rate mL/min > 60 Glucose Level 135 Calcium Level 9.2 Magnesium Level 1.6 L Exam/Review of Systems Exam Vitals Vital Signs Date Temp Pulse Resp B/P (MAP) Pulse Ox O2 O2 Flow FiO2 Time Delivery Rate 01/13/19 98.2 77 18 112/72 97 08:00 (85) 01/10/19 Room Air 14:00 Intake and Output 01/12/19 01/12/19 01/13/19 1515:00 23:00 07:00 IntakeIntake Total 450 ml 420 ml BalanceBalance 450 ml 420 ml Results Results 24hrs Laboratory Tests Test 01/13/19 08:12 Sodium Level 138 Potassium Level 3.5 Chloride Level 102 Carbon Dioxide Level 30 Anion Gap 6 Blood Urea Nitrogen 7 Creatinine 0.58 L Est Glomerular Filtrat Rate mL/min > 60 Glucose Level 135 Calcium Level 9.2 Magnesium Level 1.6 L Medications Medication Current Medications IV Flush (NS 3 ml) 3 ml PER PROTOCOL IV ; Start 01/07/19 at 12:30 Ondansetron HCl (Zofran Inj) 4 mg Q6H PRN IV NAUSEA/VOMITING; Start 01/07/19 at 12:30 Acetaminophen (Tylenol Supp) 650 mg Q6H PRN [place] .PAIN 1-3 OR TEMP; Start 01/07/19 at 12:30 Sucralfate (Carafate Susp) 1 gm QID PO Last administered on 01/13/19at 12:05; Admin Dose 1 GM; Start 01/07/19 at 17:00 Clarithromycin (Biaxin) 500 mg BID PO Last administered on 01/13/19at 08:33; Admin Dose 500 MG; Start 01/08/19 at 21:00; Stop 01/18/19 at 20:59 Amoxicillin (Amoxicillin) 1,000 mg BID PO Last administered on 01/13/19at 08:33; Admin Dose 1,000 MG; Start 01/09/19 at 09:00; Stop 01/19/19 at 08:59 Pantoprazole (Protonix Tab) 40 mg BID@06,18 PO Last administered on 01/13/19at 05:32; Admin Dose 40 MG; Start 01/11/19 at 06:00; Stop 02/10/19 at 05:59 Bismuth Subsalicylate (Pepto-Bismol) 30 ml QID PO Last administered on 01/13/19 12:05; Admin Dose 30 ML; Start 01/10/19 at 10:30; Stop 01/20/19 at 10:29 Docusate Sodium/ Ferrous Fumarate (Gloria-Sequels) 1 tab DAILY PO Last administered on 01/13/19 08:32; Admin Dose 1 TAB; Start 01/10/19 at 16:00; Stop 02/09/19 at 15:59 Multivitamins Therapeutic (Theragran) 1 tab DAILY PO Last administered on 01/13/19 08:32; Admin Dose 1 TAB; Start 01/12/19 at 09:00 Folic Acid (Folic Acid) 1 mg DAILY PO Last administered on 01/13/19 08:32; Admin Dose 1 MG; Start 01/12/19 at 09:00 Thiamine HCl (Vitamin B1) 100 mg DAILY PO Last administered on 01/13/19 08:32; Admin Dose 100 MG; Start 01/12/19 at 09:00 Escitalopram Oxalate (Lexapro) 10 mg DAILY PO Last administered on 01/13/19 08:32; Admin Dose 10 MG; Start 01/12/19 at 09:00 CHINO AGUILAR NP Jan 13, 2019 13:51
[2019-01-13 14:00] VITALS: BP 113/73; PULSE 79; RESP 18
[2019-01-13] MEDS ORDERED: MAGNESIUM SULFATE 2 GM/50 ML 50 ML IVPB ONE (14:00)
--- NOTE | 2019-01-13 14:07 | PN ---
Date/Time of Note Date/Time of Note DATE: 01/13/19 TIME: 14:06 Assessment/Plan VTE Prophylaxis Risk score (from Nsg)>0 risk: 2 SCD applied (from Nsg): Yes Pharmacological prophylaxis: other (scds) Lines/Catheters IV Catheter Type (from Nrs): Peripheral IV Urinary Cath still in place: No Assessment/Plan Hospital Course Assessment: GI bleeding/hematemesis/coffee-ground emesis. EGD 01/07/19 Hiatal hernia Fady ulcer Esophagitis/gastritis BX:Gastric body, antrum biopsy: Chronic gastritis, moderate to severe, involving antral mucosa. Numerous bacteria compatible with Helicobacter pylori are identified in a Giemsa stain (positive control concurrently reviewed). -- There is no evidence of intestinal metaplasia, dysplasia or malignancy. H. pylori gastritis- currently under treatment History of alcohol abuse. Probable alcoholic liver disease. Confusional state/encephalopathy Homelessness Plan: PPI bid, Carafate QID [id number] Amoxicillin 500 mg si caps p.o. twice daily times x 14 days, Clarithromycin 500 mg si tab p.o. twice daily times x 14 days, cont PPI BID Follow-up with GI as an outpatient to repeat UBT 6 weeks after treatment is completed. Monitor H&H and transfuse as necessary. D/c planning pending- pt appears stable for out-pt management GI will sign off but will be available upon reconsult as needed Patient seen in collaboration with Dr. Bee/Tamela Subjective: Course reviewed with nursing staff Patient interviewed and examined All labs, imaging and other results reviewed No over night events, Pt tolerating diet well No c/o n.v or abd pain. Continues H.pylori treatment as rx- pt will need a f/u UBT 6 weeks after treatment has been completed to assure H.pylori bacteria has been eradicated. Patient appears stable for out-pt management. D/c currently pending PHYSICAL EXAMINATION: GENERAL: Well developed, well nourished, somewhat confused in no acute distress SKIN: No lesions NECK: Supple, no masses, CHEST: Inspection within normal limits. CARDIOVASCULAR: Heart: Regular rate and rhythm, RESPIRATORY: Lungs clear to auscultation GASTROINTESTINAL AND LIVER: Abdomen: Soft, no tenderness, non-distended, no hernias, no masses, no organomegaly, no ascites, no guarding, no rebound tend erness, normoactive bowel sounds. Rectal: Deferred. Result Diagram: 01/11/19 0659 01/13/19 0812 Results 24hrs Laboratory Tests Test 01/13/19 08:12 Sodium Level 138 Potassium Level 3.5 Chloride Level 102 Carbon Dioxide Level 30 Anion Gap 6 Blood Urea Nitrogen 7 Creatinine 0.58 L Est Glomerular Filtrat Rate mL/min > 60 Glucose Level 135 Calcium Level 9.2 Magnesium Level 1.6 L Exam/Review of Systems Exam Vitals Vital Signs Date Temp Pulse Resp B/P (MAP) Pulse Ox O2 O2 Flow FiO2 Time Delivery Rate 01/13/19 98.2 77 18 112/72 97 08:00 (85) 01/10/19 Room Air 14:00 Intake and Output 01/12/19 01/12/19 01/13/19 1515:00 23:00 07:00 IntakeIntake Total 450 ml 420 ml BalanceBalance 450 ml 420 ml Results Results 24hrs Laboratory Tests Test 01/13/19 08:12 Sodium Level 138 Potassium Level 3.5 Chloride Level 102 Carbon Dioxide Level 30 Anion Gap 6 Blood Urea Nitrogen 7 Creatinine 0.58 L Est Glomerular Filtrat Rate mL/min > 60 Glucose Level 135 Calcium Level 9.2 Magnesium Level 1.6 L Medications Medication Current Medications IV Flush (NS 3 ml) 3 ml PER PROTOCOL IV ; Start 01/07/19 at 12:30 Ondansetron HCl (Zofran Inj) 4 mg Q6H PRN IV NAUSEA/VOMITING; Start 01/07/19 at 12:30 Acetaminophen (Tylenol Supp) 650 mg Q6H PRN [place] .PAIN 1-3 OR TEMP; Start 01/07/19 at 12:30 Sucralfate (Carafate Susp) 1 gm QID PO Last administered on 01/13/19at 12:05; Admin Dose 1 GM; Start 01/07/19 at 17:00 Clarithromycin (Biaxin) 500 mg BID PO Last administered on 01/13/19at 08:33; Admin Dose 500 MG; Start 01/08/19 at 21:00; Stop 01/18/19 at 20:59 Amoxicillin (Amoxicillin) 1,000 mg BID PO Last administered on 01/13/19at 08:33; Admin Dose 1,000 MG; Start 01/09/19 at 09:00; Stop 01/19/19 at 08:59 Pantoprazole (Protonix Tab) 40 mg BID@06,18 PO Last administered on 01/13/19 05:32; Admin Dose 40 MG; Start 01/11/19 at 06:00; Stop 02/10/19 at 05:59 Bismuth Subsalicylate (Pepto-Bismol) 30 ml QID PO Last administered on 01/13/19at 12:05; Admin Dose 30 ML; Start 01/10/19 at 10:30; Stop 01/20/19 at 10:29 Docusate Sodium/ Ferrous Fumarate (Gloria-Sequels) 1 tab DAILY PO Last administered on 01/13/19 08:32; Admin Dose 1 TAB; Start 01/10/19 at 16:00; Stop 02/09/19 at 15:59 Multivitamins Therapeutic (Theragran) 1 tab DAILY PO Last administered on 01/13/19 08:32; Admin Dose 1 TAB; Start 01/12/19 at 09:00 Folic Acid (Folic Acid) 1 mg DAILY PO Last administered on 01/13/19 08:32; Admin Dose 1 MG; Start 01/12/19 at 09:00 Thiamine HCl (Vitamin B1) 100 mg DAILY PO Last administered on 01/13/19 08:32; Admin Dose 100 MG; Start 01/12/19 at 09:00 Escitalopram Oxalate (Lexapro) 10 mg DAILY PO Last administered on 01/13/19 08:32; Admin Dose 10 MG; Start 01/12/19 at 09:00 Magnesium Sulfate 50 ml @ 25 mls/hr ONCE ONCE IVPB ; Start 01/13/19 at 14:00; Stop 01/13/19 at 15:59 RENETTA OHARA Jan 13, 2019 14:07
--- NOTE | 2019-01-13 15:23 | NUR ---
PT NOTES: [facility] Patient: Doyle Person : 1955 Age/Sex: 63/M Unit#: [id number] Room/Bed: 5567/A User: Deacon Tillman PTA Date: 01/13/19 14:49 Type: PT Technical Record Therapy day number 2 Subjective Current complaint of pain Pain Scale NUMERIC Pain Intensity 0 (0-10) Patient Stated Goal for Pain Relief 0 (0-10) Pain Level Comment non noted Pre Treatment Vital Signs Stable Yes Exercise Assessment Label Bilat Lower Extremity Exercise Type Active ROM Additional Exercise Comments all planes Exercise Start Time 10:20 Exercise End Time 10:35 Total Exercise Time 15 min (8-127) Transfer Training Start Time 10:35 Supine to Sit Stand by Assist Transfer Sit to Stand Ability Contact Guard Assist Bed Mobility Sit to Supine Stand by Assist Bed Transfer Ability Contact Guard Assist Chair Transfer Ability Contact Guard Assist Sitting Tolerance 12 min Transfer Training End Time 10:45 Total Transfer Training Time 10 min (8-127) Gait Training Start Time 10:45 Gait Assist Levels Contact Guard Assist Assistive Devices Front Wheel Walker Ambulation Distance 120 feet Gait Training End Time 11:00 Total Gait Training Treatment Time 15 min (8-127) Weight Bearing Assessment Label Bilat Lower Extremity Weight Bearing Status Full Weight Bearing Static Sitting Balance Good Dynamic Sitting Balance Fair plus Standing Static Balance Fair Dynamic Standing Balance Fair Safety Judgement Fair Activity Tolerance Fair Post Treatment Pain Intensity 0 0-10 Total Treament Time 40 min (8-127) Total Minutes 40 Total Units 3 PT Technical Record Comment PT Notes: same treatment plan given; ambulated approx 120 feet with fww today; sitted approx 12 min then was safely back to bed after treatment; needs cg/sba with all activities; needs verbal/tactile cues to increase safety compliance; will continue current plan of care.
--- NOTE | 2019-01-13 17:01 | NUR ---
aox3, pt participated in physical therapy today, denies pain, mag replaced per order
[2019-01-13 20:01] VITALS: BP 91/49; PULSE 106; RESP 18
--- NOTE | 2019-01-14 02:00 | NUR ---
IV line Peripheral IV access on right hand accidentally pulled by the pt.
[2019-01-14 02:04] VITALS: BP 97/65; PULSE 79; RESP 18
[2019-01-14] MEDS: PANTOPRAZOLE (EC) 40 MG TAB PO SCH ×2 (06:13→17:24)
--- NOTE | 2019-01-14 06:32 | NUR ---
End of Shift Note During the shift at around 0200, px accidentally pulled his peripheral IV access on right dorsal hand. Bed on lowest position, side rails up 2x, side rails up 2x and call light is within reach. will continue to monitor
[2019-01-14 07:38] VITALS: BP 86/58; PULSE 78
[2019-01-14] MEDS: FERROUS FUMARATE (SR) TAB PO SCH (09:16)
[2019-01-14] MEDS: SUCRALFATE (100 MG/ML) 10ML CUP PO SCH ×4 (09:16→21:01)
[2019-01-14] MEDS: AMOXICILLIN 500 MG CAP PO SCH ×2 (09:17→21:02)
[2019-01-14] MEDS: ESCITALOPRAM 10 MG TAB PO SCH (09:17)
[2019-01-14] MEDS: THIAMINE 100 MG TAB PO SCH (09:17)
[2019-01-14] MEDS: CLARITHROMYCIN 500 MG TAB PO SCH ×2 (09:17→21:02)
[2019-01-14] MEDS: MULTIVITAMINS THERAPEUTIC TAB PO SCH (09:17)
[2019-01-14] MEDS: FOLIC ACID 1 MG TAB PO SCH (09:17)
[2019-01-14] MEDS: BISMUTH SUBSALICYLATE 240 ML BTL PO SCH ×4 (09:18→21:02)
--- NOTE | 2019-01-14 10:59 | NUR ---
SS NOTE: F/U SW F/U REGARDING REVISED PLAN TO SEND PT TO [facility] UNTIL ALCOHOL REHAB BED AT [facility] CAN BE ARRANGED. [facility] FAXED REFERRAL TO [facility] ([phone]). PT WILL NEED PHYSICAL THERAPY F/U TO BE ARRANGED BEFORE D/C. PT TO BE GOING TO [address] [place] [address] WHEN ALL ARRANGEMENTS CAN BE FINALIZED. SW REMAINS AVAILABLE FOR F/U NEEDED.
--- NOTE | 2019-01-14 11:35 | PN ---
Date/Time of Note Date/Time of Note DATE: 01/14/19 TIME: 11:33 Assessment/Plan VTE Prophylaxis Risk score (from Ns)>0 risk: 2 SCD applied (from Ns): Yes Pharmacological prophylaxis: NA/contraindicated Pharm contraindication: low risk/ambulating Lines/Catheters IV Catheter Type (from [facility]): Peripheral IV Urinary Cath still in place: No Assessment/Plan Hospital Course SUBJECTIVE: No acute overnight episodes. OBJECTIVE: Vital signs-see below PHYSICAL EXAM: Constitutional: Disheveled male, lying in bed comfortably. Psych: nl mood/affect, no complaints Head: atraumatic, normocephalic Eyes: nl conjunctiva, nl sclera ENMT: mucosa pink and moist, nl external ears & nose Neck: non-tender, supple Respiratory: clear to auscultation, normal air movement Cardiovascular: nl pulses, regular rate and rhythm Gastrointestinal: non-tender, soft, bowel sounds active in all 4 quadrants. Musculoskeletal/extremities: nl extremities to inspection, motor strength equal bilaterally, no focal deficit. Normal pulses,no cyanosis, no edema. Neurological: Alert oriented x3. nl strength Skin: nl turgor ASSESSMENT/PLAN: 63-year-old homeless male who is also a poor historian with alcoholism, brought in by paramedics after found on the street intoxicated, havi ng coffee-ground emesis. 1. Hematemesis/Upper GIB. -EGD with moderate to severe gastritis/Fady ulcer/esophagitis/gastritis. -Continue PPI/Carafate -Stable 2. H. pylori gastritis -On appropriate agents. -Recommend follow-up in 6 weeks. 3. Acute blood loss anemia requiring multiple transfusion Secondary to GI bleed. -Now stable. -Continue iron supplementation. 4. EtOH abuse/intoxication -Now stable. cont. oral thiamine supplementation. -Cessation advised. 5. Encephalopathy, likely toxic metabolic 2/2 alcoholism -Resolved. -Supportive care 6. Homelessness -grommet worker assistance. 7. Depressive disorders. - on Lexapro. DVT prophylaxis: SCDs PUD prophylaxis: Protonix Disposition: DC planning to recuperate center w/HH. Pending placement. Patient was seen in collaboration with . Cont Hosp Indication/DC Plan: PLACEMENT Result Diagram: 01/11/19 0659 01/14/19 0537 Results 24hrs Laboratory Tests Test 01/14/19 05:37 Sodium Level 138 Potassium Level 4.0 Chloride Level 99 Carbon Dioxide Level 30 Anion Gap 9 Blood Urea Nitrogen 16 # Creatinine 0.83 Est Glomerular Filtrat Rate mL/min > 60 Glucose Level 103 Calcium Level 9.1 Magnesium Level 1.8 Exam/Review of Systems Exam Vitals Vital Signs Date Temp Pulse Resp B/P (MAP) Pulse Ox O2 O2 Flow FiO2 Time Delivery Rate 01/14/19 98.4 78 86/58 (67) 98 Room Air 07:38 01/14/19 18 02:04 Intake and Output 01/13/19 01/13/19 01/14/19 1515:00 23:00 07:00 IntakeIntake Total 960 ml 510 ml BalanceBalance 960 ml 510 ml Results Results 24hrs Laboratory Tests Test 01/14/19 05:37 Sodium Level 138 Potassium Level 4.0 Chloride Level 99 Carbon Dioxide Level 30 Anion Gap 9 Blood Urea Nitrogen 16 # Creatinine 0.83 Est Glomerular Filtrat Rate mL/min > 60 Glucose Level 103 Calcium Level 9.1 Magnesium Level 1.8 Medications Medication Current Medications IV Flush (NS 3 ml) 3 ml PER PROTOCOL IV ; Start 01/07/19 at 12:30 Ondansetron HCl (Zofran Inj) 4 mg Q6H PRN IV NAUSEA/VOMITING; Start 01/07/19 at 12:30 Acetaminophen (Tylenol Supp) 650 mg Q6H PRN [place] .PAIN 1-3 OR TEMP; Start 01/07/19 at 12:30 Sucralfate (Carafate Susp) 1 gm QID PO Last administered on 01/14/19at 09:16; Admin Dose 1 GM; Start 01/07/19 at 17:00 Clarithromycin (Biaxin) 500 mg BID PO Last administered on 01/14/19at 09:17; Admin Dose 500 MG; Start 01/08/19 at 21:00; Stop 01/18/19 at 20:59 Amoxicillin (Amoxicillin) 1,000 mg BID PO Last administered on 01/14/19 09:17; Admin Dose 1,000 MG; Start 01/09/19 at 09:00; Stop 01/19/19 at 08:59 Pantoprazole (Protonix Tab) 40 mg BID@ PO Last administered on 01/14/19at 06:13; Admin Dose 40 MG; Start 01/11/19 at 06:00; Stop 02/10/19 at 05:59 Bismuth Subsalicylate (Pepto-Bismol) 30 ml QID PO Last administered on 01/14/19 09:18; Admin Dose 30 ML; Start 01/10/19 at 10:30; Stop 01/20/19 at 10:29 Docusate Sodium/ Ferrous Fumarate (Gloria-Sequels) 1 tab DAILY PO Last administered on 01/14/19 09:16; Admin Dose 1 TAB; Start 01/10/19 at 16:00; Stop 02/09/19 at 15:59 Multivitamins Therapeutic (Theragran) 1 tab DAILY PO Last administered on 01/14/19 09:17; Admin Dose 1 TAB; Start 01/12/19 at 09:00 Folic Acid (Folic Acid) 1 mg DAILY PO Last administered on 01/14/19 09:17; Admin Dose 1 MG; Start 01/12/19 at 09:00 Thiamine HCl (Vitamin B1) 100 mg DAILY PO Last administered on 01/14/19 09:17; Admin Dose 100 MG; Start 01/12/19 at 09:00 Escitalopram Oxalate (Lexapro) 10 mg DAILY PO Last administered on 01/14/19 09:17; Admin Dose 10 MG; Start 01/12/19 at 09:00 CHINO AGUILAR NP Jan 14, 2019 11:35
--- NOTE | 2019-01-14 12:33 | NUR ---
PT [facility] Patient: Doyle Person : 1955 Age/Sex: 63/M Unit#: [id number] Room/Bed: 5567/A User: Shavonne Gauthier PTA Date: 01/14/19 12:33 Type: PT Technical Record Therapy day number 3 Subjective Current complaint of pain Pain Scale NUMERIC Pain Intensity 5 (0-10) Patient Stated Goal for Pain Relief 0 (0-10) Pain Level Comment stomach pain Transfer Training Start Time 12:10 Supine to Sit Stand by Assist Transfer Sit to Stand Ability Stand by Assist Bed Mobility Sit to Supine Stand by Assist Transfer Training End Time 12:20 Total Transfer Training Time 10 min (8-127) Gait Training Start Time 12:20 Gait Assist Levels Contact Guard Assist Assistive Devices Front Wheel Walker Ambulation Distance 60 feet Additional Gait Comments slow yuni, short step length Gait Training End Time 12:33 Total Gait Training Treatment Time 13 min (8-127) Weight Bearing Assessment Label Bilat Lower Extremity Weight Bearing Status Full Weight Bearing Static Sitting Balance Good Dynamic Sitting Balance Good Standing Static Balance Fair Dynamic Standing Balance Fair Additional Balance Assessments Comments FWW Safety Judgement Fair Activity Tolerance Fair Post Treatment Pain Intensity 0 0-10 Quality Indicators Dizziness Total Treament Time 23 min (8-127) Total Minutes 23 Total Units 2 PT Technical Record Comment S: RN Shirley cleared pt for PT. Pt c/o 5/10 stomach pain, however agreeable to tx O: Received pt in semifowler. See above for assist levels. Gait training 60' and presented with slow yuni, short step length/stride, low foot clearance. Pt c/o dizziness and experienced 1 LOB however able to self recover. Returned pt back to room and assisted back to bed. Positioned pt to comfort in semifowler. Call light/phone within reach. Bed alarm on. Needs met. Informed RN of pt status and PT activities. A: Fair tolerance to tx. Limited gait distance due to c/o dizziness. P: Continue w/ POC and progress as tolerated
[2019-01-14 14:12] VITALS: BP 87/57; PULSE 82; RESP 16
--- NOTE | 2019-01-14 15:29 | NUR ---
SS NOTE: F/U RE: ALCOHOL REHAB SW LEFT SECOND VOICE MAIL MESSAGE FOR [facility] ([phone]), INTAKE PERSON AT [facility] TO DISCUSS PT SUBMISSION FOR SCHEDULING ALCOHOL REHAB RESIDENTIAL BED AND WAITING LIST STATUS. THIS BOILER HOUSE OPERATOR TO DISCUSS PLAN FOR PT TO FIRST D/C TO [facility] [place] W/ FOLLOW UP TO [place] WHEN A BED BECOMES AVAILABLE . SW AWAITS CALL BACK FROM [facility] OR [place] ICING MAKER. SW REMAINS AVAILABLE FOR F/U NEEDED.
--- NOTE | 2019-01-14 19:30 | NUR ---
END OF SHIFT NOTES: PT STABLE, ALERT & ORIENTED X2. NO DISTRESS NOTED. PT TO BE TRANSFERRED TO RECUPERATIVE CARE POSSIBLY TOMORROW. PT DONE TODAY. BED AND CHAIR ALARM ON. INSTRUCTED PT TO CALL FOR ASSISTANCE. VS WNL.HOURLY ROUNDING. CALL LIGHT WITHIN REACH.ALL NEEDS MET. NO NEW COMPLAINTS
[2019-01-14 20:00] VITALS: BP 101/66; PULSE 63; RESP 19
[2019-01-15 02:00] VITALS: BP 103/69; PULSE 68; RESP 18
[2019-01-15] MEDS: PANTOPRAZOLE (EC) 40 MG TAB PO SCH (06:00)
--- NOTE | 2019-01-15 06:15 | NUR ---
Slept well. Denies pain. Voiding well, assisted to toilet. No s/s of distress noted. Call light within reached. Bed alarm is activated.
[2019-01-15 07:29] VITALS: BP 99/63; PULSE 70; RESP 16
[2019-01-15] MEDS: SUCRALFATE (100 MG/ML) 10ML CUP PO SCH ×2 (08:48→12:01)
[2019-01-15] MEDS: AMOXICILLIN 500 MG CAP PO SCH (08:48)
[2019-01-15] MEDS: FOLIC ACID 1 MG TAB PO SCH (08:48)
[2019-01-15] MEDS: THIAMINE 100 MG TAB PO SCH (08:48)
[2019-01-15] MEDS: FERROUS FUMARATE (SR) TAB PO SCH (08:48)
[2019-01-15] MEDS: ESCITALOPRAM 10 MG TAB PO SCH (08:48)
[2019-01-15] MEDS: MULTIVITAMINS THERAPEUTIC TAB PO SCH (08:48)
[2019-01-15] MEDS: CLARITHROMYCIN 500 MG TAB PO SCH (08:48)
[2019-01-15] MEDS: BISMUTH SUBSALICYLATE 240 ML BTL PO SCH ×2 (08:50→12:01)
--- NOTE | 2019-01-15 09:29 | NUR ---
PT NOTE [facility] Patient: Doyle Person : 1955 Age/Sex: 63/M Unit#: [id number] Room/Bed: 5567/A User: Lawanda Davalos PTA Date: 01/15/19 09:05 Type: PT Technical Record Therapy day number 4 Subjective Denies pain Pain Scale NUMERIC Pain Intensity 0 (0-10) Patient Stated Goal for Pain Relief 0 (0-10) Pain Level Comment denied pain Transfer Training Start Time 09:05 Supine to Sit Supervised Transfer Sit to Stand Ability Supervised Bed Mobility Sit to Supine Supervised Additional Mobility Comments flat bed, Mod I bed mobitlity Transfer Training End Time 09:15 Total Transfer Training Time 10 min (8-127) Patient uses wheelchair Not Applicable Gait Training Start Time 09:16 Gait Assist Levels Stand by Assist Assistive Devices Front Wheel Walker Ambulation Distance 200 feet Additional Gait Comments 200'x2; reciprocal gait, VCs on fwd gaze and close proximity to AD Gait Training End Time 09:29 Total Gait Training Treatment Time 13 min (8-127) Weight Bearing Assessment Label Bilat Lower Extremity Weight Bearing Status Full Weight Bearing Static Sitting Balance Good Dynamic Sitting Balance Good Standing Static Balance Fair plus Dynamic Standing Balance Fair plus Additional Balance Assessments Comments FWW Safety Judgement Good Activity Tolerance Good Post Treatment Pain Intensity 0 0-10 Total Treament Time 23 min (8-127) Total Minutes 23 Total Units 2 PT Technical Record Comment PT NOTE S: Pt denied any pain. Agreed to skilled PT. Cleared by SKYLER Maya. O: Received awake in supine. See tech record for assist levels. Transferred to EOB with flat bed and no bed rail; no c/o dizziness. STS without AD. Gait training with FWW, reciprocal gait, decreased yuni, VCs on fwd gaze and upright posture, as well as maintaining close proximity to AD; pt demo'd good understanding/return. Pt demonstrated mild instability but pt stated it was a result of pants starting to fall down; steady throughout remainder of gait training. Returned back to EOB and back to supine with flat bed and no bed rail. Mod I with bed mobility. Left in supine, call light and all necessities within reach. Informed RN. A: Pt mary ann tx well. Improved gait training and assist levels. No c/o pain or dizziness throughout session. Upon evaluation, PT recommendation FWW for increased stability. P: Continue with POC as long as pt is still in house to continue to progress balance and strength.
--- NOTE | 2019-01-15 10:05 | NUR ---
SS NOTE CONFIRMED D/C TO [facility] SW CONFIRMED WITH [facility] LAURENT FLOOD ([phone]) THAT PT TO BE D/C TO THEIR FACILITY TODAY. PT WILL BE PICKED UP BY [facility] AND TRANSPORTED TO [facility] LOCATED AT [address] [place] [phone] ([phone]). THIS MILITARY TECHNICIAN UPDATED THAT [facility] TO HEAT TREAT FURNACE OPERATOR PT BETWEEN 1-2PM. CM TO F/U REGARDING FWW AND HH FOR MEDICATION MANAGEMENT. SW REMAINS AVAILABLE FOR F/U NEEDED. Addendum: 01/15/19 at 1023 by KAREN MCCLURE PT WAS REASSESSED BY PHYSICAL THERAPIST AND DETERMINATION WAS MADE THAT PT WILL NOT REQUIRE OUTPATIENT FOLLOW UP PHYSICAL THERAPY.
--- NOTE | 2019-01-15 10:33 | NUR ---
SS NOTE: F/U RE: ALCOHOL REHAB SW LEFT THIRD VOICE MAIL MESSAGE FOR [facility] ([phone]), INTAKE PERSON AT [facility] TO DISCUSS PT SUBMISSION FOR SCHEDULING ALCOHOL REHAB RESIDENTIAL BED AND WAITING LIST STATUS. THIS FILER REPAIRER HAS NOT RECEIVED CALL BACK TO DATE. THIS FILER REPAIRER TO DISCUSS PLAN FOR PT TO FIRST D/[facility] TO [facility]/ FOLLOW UP TO [facility] WHEN A BED BECOMES AVAILABLE . SW AWAITS CALL BACK FROM [facility] OR [facility] DRUM OPERATOR. SW REMAINS AVAILABLE FOR F/U NEEDED.
--- NOTE | 2019-01-15 11:13 | NUR ---
GERARD notes: CM delivered FWW to patients bedside room 9517 faxed order to [facility] and left message for Louie to alert him of order faxed HHRN orders for medication management to [facility] spoke to Milagro and provided her the address and phone # of recuperative care patient will be transferring to today, seed cone picker time per SW notes is between 1-2pm, bedside nurse Zulma and Charge nurse Rebekah burton. Rupinder Villeda RNCM
--- NOTE | 2019-01-15 11:38 | PDOCDIS ---
Discharge Instructions CONDITION [id number] Patient Condition: Htzux2d Stable HOME CARE INSTRUCTIONS: [id number] Diet Instructions: [id number] Low Fat /Cholesterol ACTIVITY: [id number] Activity Restrictions: Tiucp0a No Restrictions [id number] Bathing Restrictions: Zpqts4o Shower FOLLOW UP/APPOINTMENTS Follow-up Plan Follow-up with to repeat urea breath test in 6 weeks after antibiotic treatment is completed. Follow-up with primary care physician in 1 week CHINO AGUILAR NP Jan 15, 2019 11:38
[2019-01-15] MEDS ORDERED: FERR1TAB14 PO (11:43)
[2019-01-15] MEDS ORDERED: CARAS PO (11:43)
[2019-01-15] MEDS ORDERED: AMOX500C2 PO (11:43)
[2019-01-15] MEDS ORDERED: ESCI10TA48 PO (11:43)
[2019-01-15] MEDS ORDERED: PANT40TA4 PO (11:43)
[2019-01-15] MEDS ORDERED: CLAR500T PO (11:43)
[2019-01-15] MEDS ORDERED: THIA100T56 PO (11:43)
[2019-01-15] MEDS ORDERED: MULTI PO (11:43)
[2019-01-15] MEDS ORDERED: FOLI-49 PO (11:43)
--- NOTE | 2019-01-15 12:01 | DS ---
Date/Time of Note Date/Time of Note DATE: 01/15/19 TIME: 11:57 Discharge Summary Admission/Discharge Info Admit Date/Time Jan 07, 2019 at 11:42 Discharge Date/Time Discharge Diagnosis 1. Hematemesis/Upper GIB W/severe gastritis/Fady ulcer/esophagitis/gastritis. 2. H. pylori gastritis 3. Acute blood loss anemia requiring multiple transfusion Secondary to GI bleed. Table. 4. EtOH abuse/intoxication 5. Alcohol induced encephalopathy..stable 6. Homelessness 7. Depressive disorders. Patient Condition: Stable Consults Dr. Bee, gastroenterology Procedures 01/13/2019. EGD. EGD 01/07/19 Hiatal hernia Fady ulcer Esophagitis/gastritis BX:Gastric body, antrum biopsy: Chronic gastritis, moderate to severe, involving antral mucosa. Numerous bacteria compatible with Helicobacter pylori are identified in a Giemsa stain (positive control concurrently reviewed). 01/07/2019. CT abdomen and pelvis with contrast. IMPRESSION: No evidence of urolithiasis, obstructive uropathy, diverticulitis or appendicitis. Large hiatal hernia. Pleural-based scar versus plate-like atelectasis medial basal segment left lower lobe. Fatty liver. Left renal cyst. No further workup required. Hx of Present Illness 63-year-old disheveled, homeless male with alcohol abuse, brought in by paramedics after found on street intoxicated, altered, having coffee-ground emesis. Apparently, patient is a very poor historian, unable to provide me any information, as such history is very limited. Patient denies to any acute discomfort like chest pain, palpitation, shortness of breath, abdominal pain, trauma, dizziness, or other acute constitutional symptoms. In the emergency room, initial labs showed hemoglobin 9.9, hematocrit 29.1, AST 106. Atrial alcohol detected 252 and blood. Coag studies unremarkable. Urine analysis negative for any UTI. Chest x-ray with subsegmental atelectasis, no evidence of pneumonia or other acute cardiopulmonary disease. There were old rib fractures visible in the x-ray. In the emergency room, patient was given normal saline 500 mL and Pepcid 40 mg and was admitted for GI bleed workup. Hospital Course 63-year-old homeless male who is also a poor historian with alcoholism, brought in by paramedics after found on the street intoxicated, having coffee-ground emesis. She was found to have severe blood loss anemia requiring multiple transfusions. Patient underwent EGD, showed moderate to severe gastritis with Fady ulcer/esophagitis/gastritis. Patient was continued on PPI and Carafate regimen with no further episodes of bleeding. Stable H&H. Pathology was positive for H. pylori gastritis for which he was started on amoxicillin/clarithromycin based eradication treatment per GI. The patient was counseled on alcohol cessation. He was treated with thiamine supplementation. Patient's mental status back to baseline with no further deterioration. Labs stable. Hemoglobin stable with no further drop. He was able to tolerate diet and activities. He also had psych evaluation and was started on Lexapro. Patient had physical therapy evaluation and he was able to walk with use of a front wheel walker. Patient is homeless, requiring assistance. He was then accepted to the [facility] with home health for medication assistance. He will be discharged to critical access hospital today with outpatient follow-up with client support administrator for repeat urea breath test after completion of treatment.. Approximately 60 m spent on coordinating the discharge on this patient. Patient was seen in collaboration with [facility] Active Scripts Thiamine* (Vitamin B-1*) 100 Mg Tablet, 100 MG PO DAILY, #30 TAB Prov:AGUILAR,CHINO V. DATA PROCESSING MANAGER 01/15/19 Multivitamins* (Theragran*) 1 Tab Tab, 1 TAB PO DAILY, #30 TAB Prov:AGUILAR,CHINO V. DATA PROCESSING MANAGER 01/15/19 Folic Acid* (Folic Acid*) 1 Mg Tablet, 1 MG PO DAILY, #30 TAB Prov:AGUILAR,CHINO V. DATA PROCESSING MANAGER 01/15/19 Sucralfate* (Carafate*) 1 Gm/10 Ml Susp, 1 GM PO QID for 30 Days, #120 DOSE Prov:AGUILAR,CHINO V. DATA PROCESSING MANAGER 01/15/19 Pantoprazole* (Pantoprazole*) 40 Mg Tablet., 40 MG PO BID@06,18, #60 TAB Prov:AGUILAR,CHINO V. DATA PROCESSING MANAGER 01/15/19 Escitalopram Oxalate* (Escitalopram Oxalate*) 10 Mg Tablet, 10 MG PO DAILY, #30 TAB Prov:CHINO AGUILAR NP 01/15/19 Ferrous Fumarate/Ascorbic Acid (Gloria-Sequels 65-25 mg Caplet) 1 Each Tablet.er, 1 TAB PO DAILY, #30 TAB Prov:CHINO AGUILAR V. DATA PROCESSING MANAGER 01/15/19 Clarithromycin* (Clarithromycin*) 500 Mg Tablet, 500 MG PO BID for 8 Days, #16 TAB Prov:CHINO AGUILAR NP 01/15/19 Amoxicillin* (Amoxicillin*) 500 Mg Cap, 1000 MG PO BID for 8 Days, #16 CAP Prov:CHINO AGUILAR NP 01/15/19 Follow-up Plan Follow-up with to repeat urea breath test in 6 weeks after antibiotic treatment is completed. Follow-up with primary care physician in 1 week Primary Care Provider Not On Staff Doctor CHINO AGUILAR NP Jan 15, 2019 12:01
[2019-01-15 14:00] VITALS: BP 106/66; PULSE 71; RESP 16
--- NOTE | 2019-01-15 14:12 | NUR ---
DISCHARGE Pt ready for discharge. Teaching done at bedside with plan of care provided. Transport here to pick pt up at this time. IV and ID band removed. Clothes provided to pt along with walker.
== END 2019-01-15 14:20 | disposition home health service (06) | DRG 377 ==
LOC: E/R 10:10 → 2NE 11:42 → 6WM 12:17 → PP2 01-08 20:00 → 5EC 01-09 07:05
PROVIDERS: ADMIT Family Medicine; ATTEND Family Medicine
PROC: 30233N1 Transfusion of Nonautologous Red Blood Cells into Peripheral Vein, Percutaneous Approach (ICD-10-PCS; 2019-01-07)
PROC: 0DB68ZX Excision of Stomach, Via Natural or Artificial Opening Endoscopic, Diagnostic (ICD-10-PCS; principal; 2019-01-07 15:30)
PROC: 30233N1 Transfusion of Nonautologous Red Blood Cells into Peripheral Vein, Percutaneous Approach (ICD-10-PCS; 2019-01-08)
DX: K25.4 Chronic or unspecified gastric ulcer with hemorrhage (principal); G92 Toxic encephalopathy; D62 Acute posthemorrhagic anemia; E87.1 Hypo-osmolality and hyponatremia; K70.9 Alcoholic liver disease, unspecified; K92.0 Hematemesis; F10.229 Alcohol dependence with intoxication, unspecified; Z59.0 Homelessness; F17.200 Nicotine dependence, unspecified, uncomplicated; F32.9 Major depressive disorder, single episode, unspecified; K44.9 Diaphragmatic hernia without obstruction or gangrene; K20.9 Esophagitis, unspecified; I10 Essential (primary) hypertension; Y90.8 Blood alcohol level of 240 mg/100 ml or more; K29.71 Gastritis, unspecified, with bleeding
CPT/HCPCS: 36430; 71045; 74177; 80048; 80053; 80307; 81001; 81003; 82607; 83540; 83690; 83735; 83930; 84100; 85014; 85018; 85025; 85610; 85730; 86803; 86850; 86900; 86901; 86920; 88305; 88312; 90686; 96374; 97110; 97116; 97161; 97530; C9113; J2916; J3411; J3475; J3480; J7030; J7040; P9016; Q9967